=== PATIENT | female | born 1975 | race Caucasian/White ===

== ENCOUNTER 2019-12-10 01:26 | Observation (INO) ==
[2019-12-10] MEDS ORDERED: Ondansetron 4 MG/2 ML VIAL IVP PRN (03:41)
[2019-12-10] MEDS ORDERED: Naloxone 0.4 MG/ML INJ IVP PRN (03:41)
[2019-12-10] MEDS ORDERED: Ipratropium/Albuterol Neb 3 ML IH PRN (03:43)
[2019-12-10] MEDS ORDERED: Furosemide 40 MG/4 ML VIAL IVP ONE ×2 (03:46→21:00)
[2019-12-10] MEDS: Acetaminophen 325 MG TABLET PO PRN ×3 (05:01→22:44)
[2019-12-10 05:18] LABS: Basophils % 0.5 %; Eosinophils # 0.4 K/mcL (0.0-0.6); Eosinophils % 6.4 %; Hematocrit 38.4 % (35.3-44.9); Hemoglobin 11.9 g/dL (11.5-15.4); Immature Granulocytes % 0.4 % (0-4); Lymphocytes # 1.7 K/mcL (0.6-4.6); Lymphocytes % 29.8 %; Mean Corpuscular Volume 80.7 fL (83.0-100.0); Mean Platelet Volume 8.8 fL (9.4-12.4); Monocytes # 0.5 K/mcL (0.0-1.3); Monocytes % 8.6 %; Neutrophils # 3.1 K/mcL (1.6-8.9); Platelet Count 374 K/mcL (140-400); Red Blood Count 4.76 M/mcL (3.82-4.97); Segmented Neutrophils % 54.3 %; White Blood Count 5.6 K/mcL (4.3-11.1)
[2019-12-10 05:31] LABS: INR 1.1; Prothrombin Time 12.2 Seconds (9.4-12.1)
[2019-12-10 05:42] LABS: BUN/Creatinine Ratio 4 (6-26); Blood Urea Nitrogen 3 mg/dL (6-20); Carbon Dioxide 24 mEq/L (23-29); Chloride 102 mEq/L (98-107); Glucose 95 mg/dL (70-105); Magnesium 1.9 mg/dL (1.6-2.6); Osmolality,Calculated 280 (280-300); Phosphorous 3.5 mg/dL (2.7-4.5); Potassium 3.5 mEq/L (3.5-5.1); Sodium 137 mEq/L (136-145); eGFR For African Americans > 60 (> 60); eGFR For Non-African Americans > 60 (> 60)
[2019-12-10] MEDS ORDERED: *HR* Heparin 5,000 UNIT/ML VIAL IVP ONE (08:27)
[2019-12-10] MEDS ORDERED: *HR* Heparin 5,000 UNIT/ML VIAL IVP PRN (08:27)
[2019-12-10] MEDS: MethylPREDNISolone 40 MG/ML VIAL IVP SCH ×3 (08:48→23:47)
[2019-12-10] MEDS: Azithromycin 500 MG in 0.9 % Sodium Chloride 250 ML IVPB SCH (08:48)
[2019-12-10] MEDS ORDERED: Albuterol 2.5 MG/3 ML NEBULIZER IH PRN (09:30)
[2019-12-10] MEDS: Heparin 25,000 UNIT/250 ML D5W 25,000 UNIT/250 ML IV.SOLN IVC SCH (09:52)
[2019-12-10] MEDS: Ipratropium/Albuterol Neb 3 ML IH SCH ×3 (12:04→19:56)
[2019-12-10] MEDS ORDERED: polyethylene glycoL 3350 17 GM POWD.PACK PO PRN (12:38)
[2019-12-10] MEDS: ALPRAZolam 1 MG TABLET PO PRN (13:33)
[2019-12-10] MEDS: Tiotropium 18 MCG inhalation IH SCH (13:58)
[2019-12-10] MEDS ORDERED: Perflutren Lipid Microsphere 1.3 ML in 0.9 % Sodium Chloride 8.7 ML IVP ONE (17:13)
[2019-12-10] MEDS ORDERED: Warfarin perPT PO PRN (18:00)
[2019-12-10] MEDS ORDERED: Enoxaparin Weight Dosing SQ SCH (18:00)
[2019-12-10] MEDS: Budesonide/Formoterol 160/4.5 1 PUFF INH IH SCH (19:56)
[2019-12-10] MEDS: Magnesium Oxide 400 MG TABLET PO SCH (20:56)
[2019-12-10] MEDS: *HR* Heparin 5,000 UNIT/ML VIAL IVP PRN (23:46)
[2019-12-11] MEDS: Ipratropium/Albuterol Neb 3 ML IH SCH ×7 (00:10→23:19)
[2019-12-11 06:42] LABS: BUN/Creatinine Ratio 8 (6-26); Blood Urea Nitrogen 8 mg/dL (6-20); Calcium 9.2 mg/dL (8.6-10.3); Carbon Dioxide 29 mEq/L (23-29); Chloride 98 mEq/L (98-107); Glucose 181 mg/dL (70-105); Osmolality,Calculated 285 (280-300); Potassium 3.9 mEq/L (3.5-5.1); Sodium 136 mEq/L (136-145); eGFR For African Americans > 60 (> 60); eGFR For Non-African Americans > 60 (> 60)
[2019-12-11 06:55] LABS: Prothrombin Time 11.1 Seconds (9.4-12.1)
[2019-12-11] MEDS: Heparin 25,000 UNIT/250 ML D5W 25,000 UNIT/250 ML IV.SOLN IVC SCH ×2 (07:09→22:58)
[2019-12-11] MEDS: Budesonide/Formoterol 160/4.5 1 PUFF INH IH SCH ×2 (07:42→19:43)
[2019-12-11] MEDS: Tiotropium 18 MCG inhalation IH SCH (07:42)
[2019-12-11] MEDS: Azithromycin 500 MG in 0.9 % Sodium Chloride 250 ML IVPB SCH (08:54)
[2019-12-11] MEDS: DilTIAZem CD (24hr) 120 MG CAP.ER.24H PO SCH (08:55)
[2019-12-11] MEDS: Metoprolol XL (24 HR) Succ 25 MG TAB.ER.24H PO SCH (08:55)
[2019-12-11] MEDS: Cyanocobalamin (B-12) 1,000 MCG TABLET PO SCH (08:55)
[2019-12-11] MEDS: MethylPREDNISolone 40 MG/ML VIAL IVP SCH ×3 (08:55→23:28)
[2019-12-11] MEDS: PARoxetine 20 MG TABLET PO SCH (08:55)
[2019-12-11] MEDS: Magnesium Oxide 400 MG TABLET PO SCH ×2 (08:55→20:57)
[2019-12-11] MEDS: Folic Acid 1 MG TABLET PO SCH (08:56)
[2019-12-11] MEDS ORDERED: SALMETEROL IH SCH (09:00)
[2019-12-11] MEDS ORDERED: [UNRECOGNIZED DRUG - OTHER] IH SCH (09:00)
[2019-12-11] MEDS ORDERED: *HR* Warfarin 5 MG TABLET PO ONE (09:00)
[2019-12-11] MEDS ORDERED: FLUTICASONE IH SCH (09:00)
[2019-12-11] MEDS ORDERED: Furosemide 40 MG TABLET PO SCH (09:00)
[2019-12-11] MEDS ORDERED: NON-FORMULARY MEDICATION 1 EACH EACH (Umeclidinium Bromide [Incruse Ellipta] 1 PUFF) IH SCH (09:00)
[2019-12-11] MEDS: ALPRAZolam 1 MG TABLET PO PRN ×3 (09:19→23:27)
[2019-12-11] MEDS: Acetaminophen 325 MG TABLET PO PRN (09:19)
[2019-12-11] MEDS: *HR* Heparin 5,000 UNIT/ML VIAL IVP PRN (15:58)
[2019-12-11] MEDS: Furosemide 40 MG/4 ML VIAL IVP SCH (20:58)
[2019-12-12 03:47] LABS: Hematocrit 36.4 % (35.3-44.9); Hemoglobin 10.8 g/dL (11.5-15.4); Mean Corpuscular HGB Conc 29.7 g/dL (31.6-35.5); Mean Corpuscular Hemoglobin 24.3 pg (28.0-33.3); Mean Platelet Volume 8.7 fL (9.4-12.4); Platelet Count 356 K/mcL (140-400); Red Blood Count 4.44 M/mcL (3.82-4.97); Red Cell Distribution Width 14.6 % (11.5-14.5); White Blood Count 5.9 K/mcL (4.3-11.1)
[2019-12-12 03:52] LABS: Prothrombin Time 11.9 Seconds (9.4-12.1)
[2019-12-12 04:06] LABS: BUN/Creatinine Ratio 15 (6-26); Blood Urea Nitrogen 16 mg/dL (6-20); Calcium 9.2 mg/dL (8.6-10.3); Carbon Dioxide 32 mEq/L (23-29); Chloride 97 mEq/L (98-107); Glucose 206 mg/dL (70-105); Osmolality,Calculated 283 (280-300); Potassium 4.3 mEq/L (3.5-5.1); Sodium 133 mEq/L (136-145); eGFR For African Americans > 60 (> 60); eGFR For Non-African Americans 55 (> 60)
[2019-12-12] MEDS: Ipratropium/Albuterol Neb 3 ML IH SCH ×4 (04:33→15:05)
[2019-12-12] MEDS: Budesonide/Formoterol 160/4.5 1 PUFF INH IH SCH (07:47)
[2019-12-12] MEDS: Tiotropium 18 MCG inhalation IH SCH (07:48)
[2019-12-12] MEDS: Cyanocobalamin (B-12) 1,000 MCG TABLET PO SCH (08:33)
[2019-12-12] MEDS: DilTIAZem CD (24hr) 120 MG CAP.ER.24H PO SCH (08:33)
[2019-12-12] MEDS: Metoprolol XL (24 HR) Succ 25 MG TAB.ER.24H PO SCH (08:33)
[2019-12-12] MEDS: Folic Acid 1 MG TABLET PO SCH (08:33)
[2019-12-12] MEDS: ALPRAZolam 1 MG TABLET PO PRN (08:33)
[2019-12-12] MEDS: Furosemide 40 MG/4 ML VIAL IVP SCH (08:34)
[2019-12-12] MEDS: PARoxetine 20 MG TABLET PO SCH (08:34)
[2019-12-12] MEDS: Magnesium Oxide 400 MG TABLET PO SCH (08:34)
[2019-12-12] MEDS: Azithromycin 500 MG in 0.9 % Sodium Chloride 250 ML IVPB SCH (08:37)
[2019-12-12] MEDS: MethylPREDNISolone 40 MG/ML VIAL IVP SCH (08:42)
[2019-12-12] MEDS ORDERED: Aspirin 81 MG TAB.CHEW PO SCH (09:00)
[2019-12-12 11:21] VITALS: BP 148/100
[2019-12-12] MEDS ORDERED: *HR* Warfarin 10 MG TABLET PO ONE (18:00)
[2019-12-12] MEDS ORDERED: *HR* Enoxaparin 100 MG/ML SYRINGE SQ SCH (18:00)
== END 2019-12-12 15:36 | disposition home or self-care (01) ==
LOC: 3BNU
PROVIDERS: ADMIT Family Medicine; ATTEND Family Medicine

== ENCOUNTER 2021-02-01 00:07 | Inpatient (IN) ==
[2021-02-01] MEDS ORDERED: Naloxone 0.4 MG/ML INJ IVP PRN ×2 (02:52→16:39)
[2021-02-01 03:45] LABS: Basophils % 0.4 %; Eosinophils # 0.1 K/mcL (0.0-0.6); Eosinophils % 0.6 %; Hematocrit 22.1 % (35.3-44.9); Hemoglobin 7.5 g/dL (11.5-15.4); Immature Granulocytes % 1.3 % (0-4); Lymphocytes # 1.9 K/mcL (0.6-4.6); Lymphocytes % 19.5 %; Mean Corpuscular HGB Conc 33.9 g/dL (31.6-35.5); Mean Corpuscular Hemoglobin 31.6 pg (28.0-33.3); Mean Corpuscular Volume 93.2 fL (83.0-100.0); Mean Platelet Volume 9.1 fL (9.4-12.4); Monocytes # 0.7 K/mcL (0.0-1.3); Monocytes % 6.7 %; Neutrophils # 6.9 K/mcL (1.6-8.9); Platelet Count 248 K/mcL (140-400); Red Blood Count 2.37 M/mcL (3.82-4.97); Red Cell Distribution Width 14.1 % (11.5-14.5); Segmented Neutrophils % 71.5 %; White Blood Count 9.7 K/mcL (4.3-11.1)
[2021-02-01 04:01] LABS: Albumin 2.5 g/dL (3.5-5.7); Albumin/Globulin Ratio 1.1 (1.1-2.2); Bilirubin,Total 3.4 mg/dL (0.3-1.0); Calcium 7.6 mg/dL (8.6-10.3); Globulin 2.2 g/dL (2.4-3.5); Magnesium 1.8 mg/dL (1.6-2.6); Potassium 3.3 mEq/L (3.5-5.1); Total Protein 4.7 g/dL (6.4-8.9)
[2021-02-01 04:21] LABS: Activated Partial Thrombo Time 142.2 Seconds (26.0-36.0); INR 10.5
[2021-02-01] MEDS ORDERED: 0.9 % Sodium Chloride 500 ML ONE (04:38)
[2021-02-01 05:34] LABS: Bacteria,Urine Few per hpf (None-Few); Bilirubin,Urine Negative (Negative); Blood,Urine Negative (Negative); Clarity,Urine Turbid (Clear); Color,Urine Yellow (Yellow); Glucose,Urine (UA) Normal (Normal); Hyaline Casts,Urine Few per lpf (None Seen); Ketones,Urine Negative (Negative); Leukocyte Esterase,Urine Moderate (Negative); Mucus,Urine Few per lpf (None-Few); Nitrite,Urine Negative (Negative); PH,Urine 5.5 pH Units (5.0-8.0); Protein,Urine Trace mg/dL (Neg-Trace); RBC,Urine 0-3 per hpf (0-3); Specific Gravity,Urine 1.011 (1.010-1.025); WBC,Urine 15-30 per hpf (0-3)
[2021-02-01] MEDS ORDERED: ALPRAZolam 1 MG TABLET PO PRN (07:25)
[2021-02-01] MEDS ORDERED: Ipratropium/Albuterol Neb 3 ML IH PRN (07:25)
[2021-02-01] MEDS ORDERED: Albuterol 2.5 MG/3 ML NEBULIZER IH PRN (07:25)
[2021-02-01] MEDS ORDERED: *HR* LORazepam 2 MG/ML VIAL IVP PRN (07:30)
[2021-02-01] MEDS ORDERED: 0.9 % Sodium Chloride 1,000 ML IVC SCH (07:30)
[2021-02-01] MEDS ORDERED: Folic Acid 1 MG TABLET PO SCH (09:00)
[2021-02-01] MEDS ORDERED: Thiamine (B-1) 100 MG TABLET PO SCH (09:00)
[2021-02-01] MEDS ORDERED: Metoprolol XL (24 HR) Succ 50 MG TAB.ER.24H PO SCH (09:00)
[2021-02-01] MEDS ORDERED: Nicotine 21 MG PATCH.TD24 TD SCH (09:00)
[2021-02-01 10:03] LABS: Prothrombin Time 33.7 Seconds (9.4-12.1)
[2021-02-01 13:35] LABS: INR 1.9
[2021-02-01] MEDS ORDERED: *HR* Heparin 5,000 UNIT/ML VIAL IVP PRN ×4 (14:10→16:39)
[2021-02-01] MEDS ORDERED: Heparin 25,000UNIT/250ML 1/2NS 25,000 UNIT/250 ML IV.SOLN IVC SCH (14:15)
[2021-02-01 15:30] LABS: Calcium 8.1 mg/dL (8.6-10.3); Potassium 3.5 mEq/L (3.5-5.1)
[2021-02-01 16:28] LABS: Hematocrit 24.1 % (35.3-44.9); Hemoglobin 8.4 g/dL (11.5-15.4); Mean Corpuscular HGB Conc 34.9 g/dL (31.6-35.5); Mean Corpuscular Hemoglobin 32.2 pg (28.0-33.3); Mean Corpuscular Volume 92.3 fL (83.0-100.0); Mean Platelet Volume 9.2 fL (9.4-12.4); Platelet Count 215 K/mcL (140-400); Red Blood Count 2.61 M/mcL (3.82-4.97); Red Cell Distribution Width 13.8 % (11.5-14.5); White Blood Count 10.7 K/mcL (4.3-11.1)
[2021-02-01] MEDS ORDERED: Pantoprazole 40 MG VIAL IVP SCH (18:00)
[2021-02-01] MEDS: ALPRAZolam 1 MG TABLET PO PRN ×2 (18:09→21:02)
[2021-02-01] MEDS: Metoprolol XL (24 HR) Succ 50 MG TAB.ER.24H PO SCH (20:16)
[2021-02-01] MEDS: 0.9 % Sodium Chloride 1,000 ML IVC SCH (21:01)
[2021-02-01] MEDS: Gabapentin 400 MG CAPSULE PO SCH (21:02)
[2021-02-02] MEDS: Heparin 25,000UNIT/250ML 1/2NS 25,000 UNIT/250 ML IV.SOLN IVC SCH ×4 (02:59→21:24)
[2021-02-02] MEDS: 0.9 % Sodium Chloride 1,000 ML IVC SCH ×3 (05:17→21:29)
[2021-02-02] MEDS: Ipratropium/Albuterol Neb 3 ML IH PRN ×4 (05:59→21:56)
[2021-02-02 06:14] LABS: Calcium 8.3 mg/dL (8.6-10.3); Potassium 3.7 mEq/L (3.5-5.1)
[2021-02-02 06:20] LABS: Thyroid Stimulating Hormone 3.299 mcIU/mL (0.340-5.600)
[2021-02-02 08:13] LABS: Hematocrit 20.6 % (35.3-44.9); Hemoglobin 7.1 g/dL (11.5-15.4); Mean Corpuscular HGB Conc 34.5 g/dL (31.6-35.5); Mean Corpuscular Hemoglobin 33.3 pg (28.0-33.3); Mean Corpuscular Volume 96.7 fL (83.0-100.0); Mean Platelet Volume 9.2 fL (9.4-12.4); Platelet Count 170 K/mcL (140-400); Red Blood Count 2.13 M/mcL (3.82-4.97); Red Cell Distribution Width 14.2 % (11.5-14.5); White Blood Count 5.7 K/mcL (4.3-11.1)
[2021-02-02 08:14] LABS: INR 1.4; Prothrombin Time 15.8 Seconds (9.4-12.1)
[2021-02-02] MEDS ORDERED: Thiamine (B-1) 100 MG TABLET PO SCH (09:00)
[2021-02-02] MEDS ORDERED: 0.9 % Sodium Chloride 250 ML IVC SCH (10:00)
[2021-02-02] MEDS: Folic Acid 1 MG TABLET PO SCH (10:01)
[2021-02-02] MEDS: Gabapentin 400 MG CAPSULE PO SCH ×3 (10:01→21:24)
[2021-02-02] MEDS: Nicotine 21 MG PATCH.TD24 TD SCH (10:02)
[2021-02-02] MEDS: Metoprolol XL (24 HR) Succ 50 MG TAB.ER.24H PO SCH ×2 (10:02→19:59)
[2021-02-02] MEDS: ALPRAZolam 1 MG TABLET PO PRN ×2 (12:13→22:48)
[2021-02-02] MEDS: Albumin 25% 25gram/100mL 25 GM/100 ML IV.SOLN IVC SCH ×2 (15:11→17:49)
[2021-02-03 03:07] LABS: Hematocrit 19.6 % (35.3-44.9); Hemoglobin 6.5 g/dL (11.5-15.4); Mean Corpuscular HGB Conc 33.2 g/dL (31.6-35.5); Mean Corpuscular Volume 93.3 fL (83.0-100.0); Platelet Count 137 K/mcL (140-400); Red Cell Distribution Width 16.4 % (11.5-14.5); White Blood Count 4.8 K/mcL (4.3-11.1)
[2021-02-03 03:17] LABS: INR 1.3; Prothrombin Time 14.7 Seconds (9.4-12.1)
[2021-02-03 03:27] LABS: Calcium 7.8 mg/dL (8.6-10.3); Potassium 3.2 mEq/L (3.5-5.1)
[2021-02-03 03:28] LABS: % Iron Saturation 85 % (15-50); Iron 105 mcg/dL (50-170); Transferrin 88 mg/dL (203-362)
[2021-02-03 03:47] LABS: Ferritin 319 ng/mL (10-120)
[2021-02-03 03:51] LABS: Folate 14.6 ng/mL (3.0-16.0)
[2021-02-03] MEDS: Ipratropium/Albuterol Neb 3 ML IH PRN ×5 (03:54→23:19)
[2021-02-03 04:04] LABS: Vitamin B12 > 1500 pg/mL (250-1100)
[2021-02-03] MEDS ORDERED: 0.9 % Sodium Chloride 250 ML ONE (04:22)
[2021-02-03] MEDS: 0.9 % Sodium Chloride 1,000 ML IVC SCH (04:38)
[2021-02-03] MEDS ORDERED: Isovue-370 500 ML BOTTLE IVP ONE (07:37)
[2021-02-03] MEDS: Gabapentin 400 MG CAPSULE PO SCH ×3 (07:40→20:26)
[2021-02-03] MEDS: Thiamine (B-1) 100 MG TABLET PO SCH (07:41)
[2021-02-03] MEDS: Metoprolol XL (24 HR) Succ 50 MG TAB.ER.24H PO SCH ×2 (07:42→20:27)
[2021-02-03] MEDS: Aspirin 81 MG TAB.CHEW PO SCH (07:42)
[2021-02-03] MEDS: Loratadine 10 MG TABLET PO SCH (07:42)
[2021-02-03] MEDS: Cyanocobalamin (B-12) 1,000 MCG TABLET PO SCH (07:42)
[2021-02-03] MEDS: Folic Acid 1 MG TABLET PO SCH (07:42)
[2021-02-03] MEDS: Fluticasone Propionate Nasal 50 MCG/SPRAY BOTTLE NS SCH (07:47)
[2021-02-03] MEDS: Nicotine 21 MG PATCH.TD24 TD SCH (07:47)
[2021-02-03] MEDS: *HR* LORazepam 2 MG/ML VIAL IVP PRN (08:07)
[2021-02-03] MEDS: ALPRAZolam 1 MG TABLET PO PRN (15:16)
[2021-02-03] MEDS ORDERED: Furosemide 40 MG/4 ML VIAL IVP ONE (15:18)
[2021-02-03] MEDS ORDERED: Albumin 25% 25gram/100mL 25 GM/100 ML IV.SOLN IVPB ONE (15:18)
[2021-02-03] MEDS ORDERED: Warfarin perPT PO PRN (18:00)
[2021-02-03 18:17] LABS: Hematocrit 24.9 % (35.3-44.9)
[2021-02-03 18:18] LABS: Hemoglobin 8.5 g/dL (11.5-15.4)
[2021-02-03] MEDS: Heparin 25,000UNIT/250ML 1/2NS 25,000 UNIT/250 ML IV.SOLN IVC SCH (18:28)
[2021-02-03] MEDS ORDERED: *HR* Warfarin 7.5 MG TABLET PO ONE (18:30)
[2021-02-04 01:05] LABS: Hematocrit 23.7 % (35.3-44.9); Hemoglobin 7.8 g/dL (11.5-15.4); Mean Corpuscular HGB Conc 32.9 g/dL (31.6-35.5); Mean Corpuscular Hemoglobin 31.2 pg (28.0-33.3); Mean Corpuscular Volume 94.8 fL (83.0-100.0); Mean Platelet Volume 8.8 fL (9.4-12.4); Platelet Count 126 K/mcL (140-400); White Blood Count 5.1 K/mcL (4.3-11.1)
[2021-02-04 01:13] LABS: BUN/Creatinine Ratio 13 (6-26); Blood Urea Nitrogen 14 mg/dL (6-20); Calcium 8.3 mg/dL (8.6-10.3); Carbon Dioxide 27 mEq/L (23-29); Chloride 100 mEq/L (98-107); Glucose 82 mg/dL (70-105); Osmolality,Calculated 284 (280-300); Potassium 3.1 mEq/L (3.5-5.1); Sodium 137 mEq/L (136-145); eGFR For African Americans > 60 (> 60); eGFR For Non-African Americans 57 (> 60)
[2021-02-04] MEDS: GuaiFENesin Liq 200 MG/10 ML UDC PO PRN (01:33)
[2021-02-04] MEDS: ALPRAZolam 1 MG TABLET PO PRN ×2 (01:33→18:31)
[2021-02-04 01:55] LABS: Heparin anti-factor XA UFH 0.37 IU/mL (0.30-0.70); INR 1.3; Prothrombin Time 14.9 Seconds (9.4-12.1)
[2021-02-04] MEDS: Ipratropium/Albuterol Neb 3 ML IH PRN ×5 (04:30→20:03)
[2021-02-04] MEDS: Cyanocobalamin (B-12) 1,000 MCG TABLET PO SCH (09:06)
[2021-02-04] MEDS: Aspirin 81 MG TAB.CHEW PO SCH (09:06)
[2021-02-04] MEDS: Folic Acid 1 MG TABLET PO SCH (09:06)
[2021-02-04] MEDS: Gabapentin 400 MG CAPSULE PO SCH ×3 (09:06→21:02)
[2021-02-04] MEDS: Thiamine (B-1) 100 MG TABLET PO SCH (09:06)
[2021-02-04] MEDS: Nicotine 21 MG PATCH.TD24 TD SCH (09:07)
[2021-02-04] MEDS: Loratadine 10 MG TABLET PO SCH (09:07)
[2021-02-04] MEDS: Metoprolol XL (24 HR) Succ 50 MG TAB.ER.24H PO SCH ×2 (09:07→21:01)
[2021-02-04] MEDS: Furosemide 40 MG/4 ML VIAL IVP SCH (09:08)
[2021-02-04] MEDS: Fluticasone Propionate Nasal 50 MCG/SPRAY BOTTLE NS SCH (09:08)
[2021-02-04] MEDS: Heparin 25,000UNIT/250ML 1/2NS 25,000 UNIT/250 ML IV.SOLN IVC SCH (14:13)
[2021-02-04] MEDS ORDERED: *HR* Warfarin 7.5 MG TABLET PO ONE (18:00)
[2021-02-05] MEDS: Ipratropium/Albuterol Neb 3 ML IH PRN ×3 (02:19→23:09)
[2021-02-05] MEDS: ALPRAZolam 1 MG TABLET PO PRN ×4 (02:36→20:10)
[2021-02-05 07:54] LABS: Hematocrit 25.5 % (35.3-44.9); Hemoglobin 8.3 g/dL (11.5-15.4); Mean Corpuscular HGB Conc 32.5 g/dL (31.6-35.5); Mean Corpuscular Hemoglobin 31.1 pg (28.0-33.3); Mean Corpuscular Volume 95.5 fL (83.0-100.0); Mean Platelet Volume 9.3 fL (9.4-12.4); Platelet Count 126 K/mcL (140-400); Red Blood Count 2.67 M/mcL (3.82-4.97); Red Cell Distribution Width 16.5 % (11.5-14.5); White Blood Count 5.8 K/mcL (4.3-11.1)
[2021-02-05 08:14] LABS: BUN/Creatinine Ratio 8 (6-26); Blood Urea Nitrogen 8 mg/dL (6-20); Calcium 8.5 mg/dL (8.6-10.3); Carbon Dioxide 28 mEq/L (23-29); Chloride 99 mEq/L (98-107); Glucose 79 mg/dL (70-105); Osmolality,Calculated 279 (280-300); Potassium 3.3 mEq/L (3.5-5.1); Sodium 136 mEq/L (136-145); eGFR For African Americans > 60 (> 60); eGFR For Non-African Americans > 60 (> 60)
[2021-02-05 08:44] LABS: INR 1.7; Prothrombin Time 19.7 Seconds (9.4-12.1)
[2021-02-05] MEDS: Thiamine (B-1) 100 MG TABLET PO SCH (10:19)
[2021-02-05] MEDS: Aspirin 81 MG TAB.CHEW PO SCH (10:19)
[2021-02-05] MEDS: Metoprolol XL (24 HR) Succ 50 MG TAB.ER.24H PO SCH ×2 (10:19→20:04)
[2021-02-05] MEDS: Folic Acid 1 MG TABLET PO SCH (10:19)
[2021-02-05] MEDS: Cyanocobalamin (B-12) 1,000 MCG TABLET PO SCH (10:19)
[2021-02-05] MEDS: Gabapentin 400 MG CAPSULE PO SCH ×3 (10:20→20:04)
[2021-02-05] MEDS: Furosemide 40 MG/4 ML VIAL IVP SCH (10:20)
[2021-02-05] MEDS: Loratadine 10 MG TABLET PO SCH (10:20)
[2021-02-05] MEDS: Nicotine 21 MG PATCH.TD24 TD SCH (10:21)
[2021-02-05] MEDS: Fluticasone Propionate Nasal 50 MCG/SPRAY BOTTLE NS SCH (10:45)
[2021-02-05] MEDS: Heparin 25,000UNIT/250ML 1/2NS 25,000 UNIT/250 ML IV.SOLN IVC SCH (10:49)
[2021-02-05 15:20] LABS: Adenovirus Not Detected (Not Detect); Bordetella Pertussis Not Detected (Not Detect); Chlamydophila pneumoniae Not Detected (Not Detect); Coronavirus 229E Not Detected (Not Detect); Coronavirus HKU1 Not Detected (Not Detect); Coronavirus NL63 Not Detected (Not Detect); Coronavirus OC43 Not Detected (Not Detect); Human Metapneumovirus Not Detected (Not Detect); Human Rhinovirus/Enterovirus Not Detected (Not Detect); Influenza A Subtype 2009 H1 Not Detected (Not Detect); Influenza B Not Detected (Not Detect); Mycoplasma pneumoniae Not Detected (Not Detect); Parainfluenza Virus 1 Not Detected (Not Detect); Parainfluenza Virus 2 Not Detected (Not Detect); Parainfluenza Virus 3 Not Detected (Not Detect); Parainfluenza Virus 4 Not Detected (Not Detect); Respiratory Syncytial Virus Not Detected (Not Detect); SARS-CoV-2 Not Detected (Not Detect)
[2021-02-05] MEDS ORDERED: *HR* Warfarin 7.5 MG TABLET PO ONE (18:00)
[2021-02-05 18:38] LABS: Hematocrit 27.4 % (35.3-44.9); Hemoglobin 8.8 g/dL (11.5-15.4)
[2021-02-06 00:51] LABS: Basophils # 0.1 K/mcL (0.0-0.2); Basophils % 0.7 %; Eosinophils % 3.2 %; Hematocrit 25.7 % (35.3-44.9); Hemoglobin 8.3 g/dL (11.5-15.4); Lymphocytes # 1.7 K/mcL (0.6-4.6); Lymphocytes % 15.4 %; Mean Corpuscular HGB Conc 32.3 g/dL (31.6-35.5); Mean Corpuscular Volume 95.9 fL (83.0-100.0); Mean Platelet Volume 9.4 fL (9.4-12.4); Monocytes # 0.8 K/mcL (0.0-1.3); Monocytes % 7.3 %; Neutrophils # 7.8 K/mcL (1.6-8.9); Platelet Count 192 K/mcL (140-400); Red Blood Count 2.68 M/mcL (3.82-4.97); Red Cell Distribution Width 16.3 % (11.5-14.5); Segmented Neutrophils % 72.4 %
[2021-02-06 00:52] LABS: Eosinophils # 0.4 K/mcL (0.0-0.6); White Blood Count 10.8 K/mcL (4.3-11.1)
[2021-02-06 00:59] LABS: INR 2.2; Prothrombin Time 25.1 Seconds (9.4-12.1)
[2021-02-06 01:40] LABS: Calcium 8.5 mg/dL (8.6-10.3)
[2021-02-06] MEDS: *HR* LORazepam 2 MG/ML VIAL IVP PRN (01:40)
[2021-02-06] MEDS: Heparin 25,000UNIT/250ML 1/2NS 25,000 UNIT/250 ML IV.SOLN IVC SCH (03:48)
[2021-02-06] MEDS: Ipratropium/Albuterol Neb 3 ML IH PRN ×2 (07:33→14:19)
[2021-02-06] MEDS: Folic Acid 1 MG TABLET PO SCH (07:57)
[2021-02-06] MEDS: Gabapentin 400 MG CAPSULE PO SCH ×3 (07:57→19:24)
[2021-02-06] MEDS: Cyanocobalamin (B-12) 1,000 MCG TABLET PO SCH (07:57)
[2021-02-06] MEDS: Loratadine 10 MG TABLET PO SCH (07:58)
[2021-02-06] MEDS: Thiamine (B-1) 100 MG TABLET PO SCH (07:58)
[2021-02-06] MEDS: ALPRAZolam 1 MG TABLET PO PRN ×3 (07:58→19:24)
[2021-02-06] MEDS: Nicotine 21 MG PATCH.TD24 TD SCH (07:58)
[2021-02-06] MEDS: Metoprolol XL (24 HR) Succ 50 MG TAB.ER.24H PO SCH ×2 (08:07→19:25)
[2021-02-06] MEDS: Fluticasone Propionate Nasal 50 MCG/SPRAY BOTTLE NS SCH (08:07)
[2021-02-06] MEDS ORDERED: Ondansetron 4 MG/2 ML VIAL IVP PRN (09:07)
[2021-02-06] MEDS ORDERED: Albumin 25% 25gram/100mL 25 GM/100 ML IV.SOLN IVPB SCH ×2 (17:30→19:00)
[2021-02-06 18:49] LABS: Hematocrit 20.9 % (35.3-44.9); Hemoglobin 6.7 g/dL (11.5-15.4)
[2021-02-06] MEDS ORDERED: Albumin 25% 25gram/100mL 25 GM/100 ML IV.SOLN IVPB ONE ×2 (19:00)
[2021-02-06] MEDS ORDERED: 0.9 % Sodium Chloride 250 ML ONE (20:45)
[2021-02-06] MEDS ORDERED: Isovue-370 500 ML BOTTLE IVP ONE (21:51)
[2021-02-06] MEDS ORDERED: Acetaminophen IV 1,000 MG/100 ML BAG IVPB ONE (21:53)
[2021-02-06] MEDS: Albuterol 2.5 MG/3 ML NEBULIZER IH PRN (23:14)
[2021-02-07 00:31] LABS: Eosinophils % 1.2 %; Red Cell Distribution Width 15.6 % (11.5-14.5)
[2021-02-07 00:32] LABS: Basophils # 0.1 K/mcL (0.0-0.2); Basophils % 0.5 %; Eosinophils # 0.1 K/mcL (0.0-0.6); Immature Granulocytes % 1.9 % (0-4); Lymphocytes # 2.5 K/mcL (0.6-4.6); Lymphocytes % 21.8 %; Mean Corpuscular HGB Conc 32.2 g/dL (31.6-35.5); Mean Corpuscular Hemoglobin 31.4 pg (28.0-33.3); Mean Corpuscular Volume 97.3 fL (83.0-100.0); Mean Platelet Volume 9.7 fL (9.4-12.4); Monocytes # 1.2 K/mcL (0.0-1.3); Neutrophils # 7.4 K/mcL (1.6-8.9); Platelet Count 201 K/mcL (140-400); Red Blood Count 1.85 M/mcL (3.82-4.97); Segmented Neutrophils % 64.6 %; White Blood Count 11.5 K/mcL (4.3-11.1)
[2021-02-07 00:38] LABS: Hemoglobin 5.8 g/dL (11.5-15.4)
[2021-02-07 00:42] LABS: INR 2.2; Prothrombin Time 25.1 Seconds (9.4-12.1)
[2021-02-07] MEDS ORDERED: 0.9 % Sodium Chloride 250 ML ONE ×2 (00:46→02:30)
[2021-02-07 00:50] LABS: Albumin 3.4 g/dL (3.5-5.7); Albumin/Globulin Ratio 1.9 (1.1-2.2); Bilirubin,Total 3.8 mg/dL (0.3-1.0); Calcium 7.9 mg/dL (8.6-10.3); Globulin 1.8 g/dL (2.4-3.5); Potassium 4.8 mEq/L (3.5-5.1); Total Protein 5.2 g/dL (6.4-8.9)
[2021-02-07 00:51] LABS: Calcium 7.9 mg/dL (8.6-10.3); Potassium 4.8 mEq/L (3.5-5.1)
[2021-02-07] MEDS ORDERED: Calcium Chloride 1,000 MG in 0.9 % Sodium Chloride 100 ML IVPB ONE (01:15)
[2021-02-07] MEDS ORDERED: Isovue-370 500 ML BOTTLE IVP ONE (01:41)
[2021-02-07] MEDS: ALPRAZolam 1 MG TABLET PO PRN ×3 (01:54→18:26)
[2021-02-07 04:22] LABS: VBG Ionized Calcium 1.18 mmol/L (1.15-1.35)
[2021-02-07 04:25] LABS: INR 1.9; Prothrombin Time 21.1 Seconds (9.4-12.1)
[2021-02-07 04:27] LABS: Activated Partial Thrombo Time 41.7 Seconds (26.0-36.0)
[2021-02-07 04:33] LABS: Albumin 3.2 g/dL (3.5-5.7); Albumin/Globulin Ratio 1.7 (1.1-2.2); Bilirubin,Direct 2.3 mg/dL (0.0-0.2); Bilirubin,Indirect 1.2 mg/dL (0.0-1.0); Bilirubin,Total 3.5 mg/dL (0.3-1.0); Calcium 9.1 mg/dL (8.6-10.3); Globulin 1.9 g/dL (2.4-3.5); Magnesium 1.2 mg/dL (1.6-2.6); Phosphorous 2.5 mg/dL (2.7-4.5); Potassium 4.3 mEq/L (3.5-5.1); Total Protein 5.1 g/dL (6.4-8.9)
[2021-02-07 05:17] LABS: Basophils % 0.3 %; Eosinophils # 0.1 K/mcL (0.0-0.6); Eosinophils % 1.4 %; Hematocrit 19.2 % (35.3-44.9); Hemoglobin 6.2 g/dL (11.5-15.4); Immature Granulocytes % 1.9 % (0-4); Lymphocytes # 1.5 K/mcL (0.6-4.6); Lymphocytes % 16.1 %; Mean Corpuscular HGB Conc 32.3 g/dL (31.6-35.5); Mean Corpuscular Hemoglobin 31.6 pg (28.0-33.3); Mean Platelet Volume 9.6 fL (9.4-12.4); Monocytes # 0.9 K/mcL (0.0-1.3); Monocytes % 9.3 %; Neutrophils # 6.6 K/mcL (1.6-8.9); Platelet Count 172 K/mcL (140-400); Red Blood Count 1.96 M/mcL (3.82-4.97); White Blood Count 9.3 K/mcL (4.3-11.1)
[2021-02-07] MEDS: Albuterol 2.5 MG/3 ML NEBULIZER IH PRN (07:29)
[2021-02-07] MEDS ORDERED: Heparin 1,000 UNITS/500 mL 500 ML ONE (08:23)
[2021-02-07] MEDS ORDERED: 0.9 % Sodium Chloride 500 ML ONE (08:23)
[2021-02-07] MEDS ORDERED: Lidocaine/EPI 1:100k 1% 50 ML VIAL ONE (08:23)
[2021-02-07] MEDS ORDERED: 0.9 % Sodium Chloride 1,000 ML ONE (08:34)
[2021-02-07] MEDS ORDERED: *HR* FentaNYL (PF) 100 MCG/2 ML VIAL ONE (08:35)
[2021-02-07] MEDS ORDERED: *HR* Midazolam HCl 2 MG/2 ML VIAL ONE (08:36)
[2021-02-07] MEDS ORDERED: *HR* FentaNYL (PF) 100 MCG/2 ML VIAL IVP ONE (08:42)
[2021-02-07] MEDS ORDERED: Isovue-300 50ML VIAL IVP ONE ×2 (08:54→09:07)
[2021-02-07] MEDS ORDERED: Acetaminophen 325 MG TABLET PO PRN (09:49)
[2021-02-07] MEDS: Thiamine (B-1) 100 MG TABLET PO SCH (10:13)
[2021-02-07] MEDS: Loratadine 10 MG TABLET PO SCH (10:13)
[2021-02-07] MEDS: Cyanocobalamin (B-12) 1,000 MCG TABLET PO SCH (10:13)
[2021-02-07] MEDS: Folic Acid 1 MG TABLET PO SCH (10:13)
[2021-02-07] MEDS: Nicotine 21 MG PATCH.TD24 TD SCH (10:13)
[2021-02-07] MEDS: Gabapentin 400 MG CAPSULE PO SCH ×3 (10:14→20:34)
[2021-02-07] MEDS: Metoprolol XL (24 HR) Succ 50 MG TAB.ER.24H PO SCH ×2 (10:14→20:35)
[2021-02-07] MEDS ORDERED: *HR* OxyCODONE Immed Rel 5 MG TABLET PO PRN (11:34)
[2021-02-07] MEDS: Fluticasone Propionate Nasal 50 MCG/SPRAY BOTTLE NS SCH (11:41)
[2021-02-07] MEDS ORDERED: Furosemide 40 MG/4 ML VIAL IVP ONE (11:51)
[2021-02-07 12:05] LABS: VBG Ionized Calcium 1.14 mmol/L (1.15-1.35)
[2021-02-07 12:10] LABS: Basophils # 0.1 K/mcL (0.0-0.2); Basophils % 0.7 %; Eosinophils # 0.2 K/mcL (0.0-0.6); Eosinophils % 1.6 %; Hematocrit 24.6 % (35.3-44.9); Lymphocytes # 1.2 K/mcL (0.6-4.6); Lymphocytes % 10.6 %; Mean Corpuscular HGB Conc 33.3 g/dL (31.6-35.5); Mean Corpuscular Hemoglobin 31.9 pg (28.0-33.3); Mean Corpuscular Volume 95.7 fL (83.0-100.0); Mean Platelet Volume 9.4 fL (9.4-12.4); Monocytes # 1.1 K/mcL (0.0-1.3); Monocytes % 9.4 %; Neutrophils # 8.4 K/mcL (1.6-8.9); Platelet Count 207 K/mcL (140-400); Red Blood Count 2.57 M/mcL (3.82-4.97); Red Cell Distribution Width 14.8 % (11.5-14.5); Segmented Neutrophils % 75.7 %; White Blood Count 11.1 K/mcL (4.3-11.1)
[2021-02-07 12:13] LABS: Hemoglobin 8.2 g/dL (11.5-15.4)
[2021-02-07 12:24] LABS: Activated Partial Thrombo Time 40.2 Seconds (26.0-36.0); INR 1.8
[2021-02-07 12:29] LABS: Calcium 8.9 mg/dL (8.6-10.3); Magnesium 1.8 mg/dL (1.6-2.6); Phosphorous 3.2 mg/dL (2.7-4.5); Potassium 4.6 mEq/L (3.5-5.1)
[2021-02-07] MEDS: *HR* OxyCODONE Immed Rel 5 MG TABLET PO PRN ×2 (14:34→20:41)
[2021-02-07] MEDS: Ipratropium/Albuterol Neb 3 ML IH PRN (15:25)
[2021-02-07 16:56] LABS: Potassium,Urine 24.7 mEq/L; Sodium, Urine 56.1 mEq/L
[2021-02-07 17:12] LABS: Bilirubin,Urine Negative (Negative); Blood,Urine Negative (Negative); Clarity,Urine Clear (Clear); Color,Urine Yellow (Yellow); Glucose,Urine (UA) Normal (Normal); Ketones,Urine Negative (Negative); Leukocyte Esterase,Urine Negative (Negative); Nitrite,Urine Negative (Negative); Protein,Urine Trace mg/dL (Neg-Trace); Specific Gravity,Urine 1.029 (1.010-1.025)
[2021-02-07] MEDS: Multivit/Ca/Min/Fe/FA 1 TAB TABLET PO SCH (18:17)
[2021-02-07] MEDS: Calcium Gluconate 1gm/50mL 1 GM/50 ML BAG IVPB SCH ×2 (18:17→19:17)
[2021-02-07 18:25] LABS: Basophils # 0.1 K/mcL (0.0-0.2); Basophils % 0.7 %; Eosinophils # 0.2 K/mcL (0.0-0.6); Eosinophils % 1.7 %; Hematocrit 24.5 % (35.3-44.9); Hemoglobin 8.3 g/dL (11.5-15.4); Immature Granulocytes % 1.5 % (0-4); Lymphocytes # 1.4 K/mcL (0.6-4.6); Lymphocytes % 11.6 %; Mean Corpuscular HGB Conc 33.9 g/dL (31.6-35.5); Mean Corpuscular Hemoglobin 31.9 pg (28.0-33.3); Mean Corpuscular Volume 94.2 fL (83.0-100.0); Mean Platelet Volume 9.3 fL (9.4-12.4); Monocytes # 1.2 K/mcL (0.0-1.3); Monocytes % 10.1 %; Platelet Count 226 K/mcL (140-400); Red Cell Distribution Width 15.3 % (11.5-14.5); Segmented Neutrophils % 74.4 %; White Blood Count 12.1 K/mcL (4.3-11.1)
[2021-02-07 18:32] LABS: INR 1.8; Prothrombin Time 20.7 Seconds (9.4-12.1)
[2021-02-07 18:44] LABS: Albumin 3.5 g/dL (3.5-5.7); Albumin/Globulin Ratio 1.8 (1.1-2.2); Bilirubin,Direct 3.3 mg/dL (0.0-0.2); Bilirubin,Indirect 1.7 mg/dL (0.0-1.0); Total Protein 5.5 g/dL (6.4-8.9)
[2021-02-08] MEDS: ALPRAZolam 1 MG TABLET PO PRN ×4 (03:32→23:05)
[2021-02-08] MEDS: *HR* OxyCODONE Immed Rel 5 MG TABLET PO PRN ×3 (03:57→20:13)
[2021-02-08 04:04] LABS: Basophils # 0.1 K/mcL (0.0-0.2); Basophils % 0.7 %; Eosinophils # 0.3 K/mcL (0.0-0.6); Eosinophils % 2.1 %; Hematocrit 25.1 % (35.3-44.9); Hemoglobin 8.3 g/dL (11.5-15.4); Immature Granulocytes % 1.4 % (0-4); Lymphocytes # 1.8 K/mcL (0.6-4.6); Lymphocytes % 12.4 %; Mean Corpuscular HGB Conc 33.1 g/dL (31.6-35.5); Mean Corpuscular Hemoglobin 31.7 pg (28.0-33.3); Mean Corpuscular Volume 95.8 fL (83.0-100.0); Mean Platelet Volume 9.1 fL (9.4-12.4); Monocytes # 1.8 K/mcL (0.0-1.3); Neutrophils # 10.5 K/mcL (1.6-8.9); Platelet Count 313 K/mcL (140-400); Red Blood Count 2.62 M/mcL (3.82-4.97); Red Cell Distribution Width 15.6 % (11.5-14.5); Segmented Neutrophils % 71.4 %; White Blood Count 14.6 K/mcL (4.3-11.1)
[2021-02-08 04:17] LABS: INR 1.7; Prothrombin Time 19.6 Seconds (9.4-12.1)
[2021-02-08 04:18] LABS: Albumin 3.3 g/dL (3.5-5.7); Albumin/Globulin Ratio 1.4 (1.1-2.2); Bilirubin,Direct 3.2 mg/dL (0.0-0.2); Bilirubin,Indirect 1.7 mg/dL (0.0-1.0); Bilirubin,Total 4.9 mg/dL (0.3-1.0); Calcium 9.2 mg/dL (8.6-10.3); Globulin 2.3 g/dL (2.4-3.5); Magnesium 1.8 mg/dL (1.6-2.6); Phosphorous 3.5 mg/dL (2.7-4.5); Potassium 5.2 mEq/L (3.5-5.1); Total Protein 5.6 g/dL (6.4-8.9)
[2021-02-08] MEDS: Albuterol 2.5 MG/3 ML NEBULIZER IH PRN (05:02)
[2021-02-08] MEDS: Loratadine 10 MG TABLET PO SCH (08:13)
[2021-02-08] MEDS: Gabapentin 400 MG CAPSULE PO SCH ×3 (08:13→20:13)
[2021-02-08] MEDS: Cefepime HCl 1,000 MG in 0.9 % Sodium Chloride Mini Bag 100 ML IVPB SCH ×3 (08:13→23:05)
[2021-02-08] MEDS: Thiamine (B-1) 100 MG TABLET PO SCH (08:13)
[2021-02-08] MEDS: Multivit/Ca/Min/Fe/FA 1 TAB TABLET PO SCH (08:13)
[2021-02-08] MEDS: Fluticasone Propionate Nasal 50 MCG/SPRAY BOTTLE NS SCH (08:14)
[2021-02-08] MEDS: Nicotine 21 MG PATCH.TD24 TD SCH (08:14)
[2021-02-08] MEDS: Metoprolol XL (24 HR) Succ 50 MG TAB.ER.24H PO SCH ×2 (08:14→20:13)
[2021-02-08] MEDS: Cyanocobalamin (B-12) 1,000 MCG TABLET PO SCH (08:14)
[2021-02-08] MEDS: Folic Acid 1 MG TABLET PO SCH (08:14)
[2021-02-08] MEDS: Ipratropium/Albuterol Neb 3 ML IH PRN ×3 (09:06→20:22)
[2021-02-08] MEDS: Heparin 25,000UNIT/250ML 1/2NS 25,000 UNIT/250 ML IV.SOLN IVC SCH (09:27)
[2021-02-08] MEDS ORDERED: Furosemide 20 MG/2 ML VIAL IVP ONE (10:47)
[2021-02-08 12:42] LABS: VBG Ionized Calcium 1.18 mmol/L (1.15-1.35)
[2021-02-08 12:45] LABS: Hematocrit 24.1 % (35.3-44.9); Hemoglobin 7.9 g/dL (11.5-15.4)
[2021-02-08 13:23] LABS: BUN/Creatinine Ratio 11 (6-26); Blood Urea Nitrogen 20 mg/dL (6-20); Calcium 9.2 mg/dL (8.6-10.3); Carbon Dioxide 23 mEq/L (23-29); Chloride 99 mEq/L (98-107); Glucose 93 mg/dL (70-105); Magnesium 1.8 mg/dL (1.6-2.6); Osmolality,Calculated 274 (280-300); Phosphorous 3.3 mg/dL (2.7-4.5); Potassium 5.5 mEq/L (3.5-5.1); Sodium 131 mEq/L (136-145); eGFR For African Americans 38 (> 60); eGFR For Non-African Americans 32 (> 60)
[2021-02-08 14:05] LABS: Troponin I < 0.03 ng/mL (< 0.04)
[2021-02-08 14:59] LABS: Basophils # 0.1 K/mcL (0.0-0.2); Basophils % 0.6 %; Eosinophils # 0.2 K/mcL (0.0-0.6); Eosinophils % 1.8 %; Immature Granulocytes % 1.3 % (0-4); Lymphocytes # 1.5 K/mcL (0.6-4.6); Mean Corpuscular HGB Conc 33.3 g/dL (31.6-35.5); Mean Corpuscular Hemoglobin 32.2 pg (28.0-33.3); Mean Corpuscular Volume 96.7 fL (83.0-100.0); Mean Platelet Volume 9.2 fL (9.4-12.4); Monocytes # 1.7 K/mcL (0.0-1.3); Monocytes % 12.5 %; Neutrophils # 9.8 K/mcL (1.6-8.9); Platelet Count 307 K/mcL (140-400); Red Blood Count 2.45 M/mcL (3.82-4.97); Red Cell Distribution Width 15.9 % (11.5-14.5); Segmented Neutrophils % 72.8 %; White Blood Count 13.5 K/mcL (4.3-11.1)
[2021-02-08 18:19] LABS: Basophils # 0.1 K/mcL (0.0-0.2); Basophils % 0.5 %; Eosinophils # 0.2 K/mcL (0.0-0.6); Eosinophils % 1.5 %; Hematocrit 25.1 % (35.3-44.9); Hemoglobin 8.1 g/dL (11.5-15.4); Immature Granulocytes % 1.7 % (0-4); Lymphocytes # 1.6 K/mcL (0.6-4.6); Lymphocytes % 11.4 %; Mean Corpuscular HGB Conc 32.3 g/dL (31.6-35.5); Mean Corpuscular Hemoglobin 31.8 pg (28.0-33.3); Mean Corpuscular Volume 98.4 fL (83.0-100.0); Mean Platelet Volume 9.2 fL (9.4-12.4); Monocytes # 1.7 K/mcL (0.0-1.3); Monocytes % 11.6 %; Neutrophils # 10.4 K/mcL (1.6-8.9); Platelet Count 317 K/mcL (140-400); Red Blood Count 2.55 M/mcL (3.82-4.97); Red Cell Distribution Width 15.9 % (11.5-14.5); Segmented Neutrophils % 73.3 %; White Blood Count 14.3 K/mcL (4.3-11.1)
[2021-02-08 20:45] LABS: Potassium 5.4 mEq/L (3.5-5.1)
[2021-02-09 00:09] LABS: Hematocrit 21.5 % (35.3-44.9); Hemoglobin 7.1 g/dL (11.5-15.4)
[2021-02-09] MEDS: Ipratropium/Albuterol Neb 3 ML IH PRN ×3 (00:55→19:42)
[2021-02-09] MEDS: *HR* OxyCODONE Immed Rel 5 MG TABLET PO PRN ×3 (01:17→20:26)
[2021-02-09 03:14] LABS: Basophils # 0.1 K/mcL (0.0-0.2); Basophils % 0.5 %; Eosinophils # 0.2 K/mcL (0.0-0.6); Eosinophils % 1.9 %; Immature Granulocytes % 1.7 % (0-4); Lymphocytes # 1.3 K/mcL (0.6-4.6); Lymphocytes % 11.5 %; Mean Corpuscular HGB Conc 31.8 g/dL (31.6-35.5); Mean Corpuscular Hemoglobin 31.3 pg (28.0-33.3); Mean Corpuscular Volume 98.2 fL (83.0-100.0); Mean Platelet Volume 9.3 fL (9.4-12.4); Monocytes # 1.6 K/mcL (0.0-1.3); Monocytes % 14.4 %; Neutrophils # 7.9 K/mcL (1.6-8.9); Platelet Count 274 K/mcL (140-400); Red Blood Count 2.24 M/mcL (3.82-4.97); Red Cell Distribution Width 16.1 % (11.5-14.5); White Blood Count 11.2 K/mcL (4.3-11.1)
[2021-02-09 03:21] LABS: INR 1.6; Prothrombin Time 18.6 Seconds (9.4-12.1)
[2021-02-09 03:24] LABS: Albumin 3.1 g/dL (3.5-5.7); Albumin/Globulin Ratio 1.5 (1.1-2.2); Bilirubin,Total 4.7 mg/dL (0.3-1.0); Calcium 8.4 mg/dL (8.6-10.3); Globulin 2.1 g/dL (2.4-3.5); Potassium 4.9 mEq/L (3.5-5.1); Total Protein 5.2 g/dL (6.4-8.9)
[2021-02-09] MEDS: Heparin 25,000UNIT/250ML 1/2NS 25,000 UNIT/250 ML IV.SOLN IVC SCH (05:59)
[2021-02-09] MEDS: ALPRAZolam 1 MG TABLET PO PRN ×3 (06:22→20:26)
[2021-02-09] MEDS: Cefepime HCl 1,000 MG in 0.9 % Sodium Chloride Mini Bag 100 ML IVPB SCH ×2 (07:29→15:10)
[2021-02-09] MEDS: Nicotine 21 MG PATCH.TD24 TD SCH (07:29)
[2021-02-09] MEDS: Thiamine (B-1) 100 MG TABLET PO SCH (07:30)
[2021-02-09] MEDS: Gabapentin 400 MG CAPSULE PO SCH ×3 (07:30→20:26)
[2021-02-09] MEDS: GuaiFENesin Liq 200 MG/10 ML UDC PO PRN (07:30)
[2021-02-09] MEDS: Loratadine 10 MG TABLET PO SCH (07:30)
[2021-02-09] MEDS: Multivit/Ca/Min/Fe/FA 1 TAB TABLET PO SCH (07:30)
[2021-02-09] MEDS: Folic Acid 1 MG TABLET PO SCH (07:31)
[2021-02-09] MEDS: Fluticasone Propionate Nasal 50 MCG/SPRAY BOTTLE NS SCH (07:31)
[2021-02-09] MEDS: Metoprolol XL (24 HR) Succ 50 MG TAB.ER.24H PO SCH ×2 (07:31→20:27)
[2021-02-09] MEDS: Cyanocobalamin (B-12) 1,000 MCG TABLET PO SCH (07:31)
[2021-02-09 07:49] LABS: Hematocrit 21.6 % (35.3-44.9); Hemoglobin 7.1 g/dL (11.5-15.4)
[2021-02-09] MEDS ORDERED: Lidocaine -MPF 1% 5 ML AMPUL INFILT ONE (10:00)
[2021-02-09 12:03] LABS: Hematocrit 24.9 % (35.3-44.9); Hemoglobin 8.2 g/dL (11.5-15.4)
[2021-02-09] MEDS ORDERED: Furosemide 20 MG/2 ML VIAL IVP ONE (12:13)
[2021-02-09 18:38] LABS: Hematocrit 26.8 % (35.3-44.9); Hemoglobin 8.8 g/dL (11.5-15.4)
[2021-02-09 21:09] VITALS: BP 106/64
== END 2021-02-09 21:40 | disposition short-term general hospital (02) | DRG 950 ==
LOC: SUATTDRO 02:16 → ICNU 02:16 → 2ANU 22:52 → ICNU 02-07 01:26
PROVIDERS: ADMIT Student in an Organized Health Care Education/Training Program; ATTEND Internal Medicine

== ENCOUNTER 2021-06-20 20:09 | Inpatient (IN) ==
[2021-06-21] MEDS ORDERED: *HR* Heparin 5,000 UNIT/ML VIAL IVP PRN (01:16)
[2021-06-21] MEDS: Heparin 25,000UNIT/250ML 1/2NS 25,000 UNIT/250 ML IV.SOLN IVC SCH (01:52)
[2021-06-21] MEDS: Levalbuterol Neb 1.25 MG/3 ML IH SCH ×6 (03:24→19:33)
[2021-06-21 03:49] LABS: Hematocrit 41.4 % (35.3-44.9); Hemoglobin 13.6 g/dL (11.5-15.4); Mean Corpuscular HGB Conc 32.9 g/dL (31.6-35.5); Mean Corpuscular Hemoglobin 34.3 pg (28.0-33.3); Mean Corpuscular Volume 104.5 fL (83.0-100.0); Mean Platelet Volume 9.2 fL (9.4-12.4); Platelet Count 124 K/mcL (140-400); Red Blood Count 3.96 M/mcL (3.82-4.97); White Blood Count 4.1 K/mcL (4.3-11.1)
[2021-06-21 04:10] LABS: Alanine Aminotransferase 33 Units/L (7-52); Albumin 3.1 g/dL (3.5-5.7); Albumin/Globulin Ratio 0.9 (1.1-2.2); Alkaline Phosphatase 338 Units/L (34-104); Aspartate Amino Transferase 122 Units/L (13-39); BUN/Creatinine Ratio 5 (6-26); Bilirubin,Total 2.3 mg/dL (0.3-1.0); Blood Urea Nitrogen 4 mg/dL (6-20); Calcium 8.1 mg/dL (8.6-10.3); Carbon Dioxide 26 mEq/L (23-29); Chloride 104 mEq/L (98-107); Globulin 3.3 g/dL (2.4-3.5); Glucose 82 mg/dL (70-105); Osmolality,Calculated 282 (280-300); Potassium 4.2 mEq/L (3.5-5.1); Sodium 138 mEq/L (136-145); Total Protein 6.4 g/dL (6.4-8.9); eGFR For African Americans > 60 (> 60); eGFR For Non-African Americans > 60 (> 60)
[2021-06-21] MEDS ORDERED: Perflutren Lipid Microsphere 1.3 ML in 0.9 % Sodium Chloride 8.7 ML IVP PRN (04:13)
[2021-06-21 04:48] LABS: Basophils % 0.7 %; Eosinophils # 0.1 K/mcL (0.0-0.6); Eosinophils % 2.5 %; Hematocrit 43.7 % (35.3-44.9); Hemoglobin 14.1 g/dL (11.5-15.4); Immature Granulocytes % 0.9 % (0-4); Lymphocytes # 0.3 K/mcL (0.6-4.6); Lymphocytes % 5.7 %; Mean Corpuscular HGB Conc 32.3 g/dL (31.6-35.5); Mean Corpuscular Hemoglobin 33.7 pg (28.0-33.3); Mean Corpuscular Volume 104.3 fL (83.0-100.0); Mean Platelet Volume 9.6 fL (9.4-12.4); Monocytes # 0.2 K/mcL (0.0-1.3); Monocytes % 4.5 %; Neutrophils # 3.8 K/mcL (1.6-8.9); Platelet Count 132 K/mcL (140-400); Red Blood Count 4.19 M/mcL (3.82-4.97); Segmented Neutrophils % 85.7 %; White Blood Count 4.4 K/mcL (4.3-11.1)
[2021-06-21] MEDS ORDERED: *HR* HYDROmorphone 2 MG TABLET PO ONE (04:55)
[2021-06-21 04:57] LABS: Albumin 3.3 g/dL (3.5-5.7); Albumin/Globulin Ratio 1.1 (1.1-2.2); Bilirubin,Direct 1.3 mg/dL (0.0-0.2); Bilirubin,Indirect 1.1 mg/dL (0.0-1.0); Bilirubin,Total 2.4 mg/dL (0.3-1.0); Globulin 3.1 g/dL (2.4-3.5); Total Protein 6.4 g/dL (6.4-8.9)
[2021-06-21 04:57] LABS: Chol/HDL Ratio 1.9 (0-4.9); Cholesterol 154 mg/dL (< 200); HDL Cholesterol 81 mg/dL (40-59); LDL Cholesterol,Calculated 50 mg/dL (< 100); Magnesium 1.8 mg/dL (1.6-2.6); Triglycerides 113 mg/dL (< 150); Troponin I < 0.03 ng/mL (< 0.04)
[2021-06-21] MEDS ORDERED: Calcium Gluconate 1gm/50mL 1 GM/50 ML BAG IVPB ONE (05:15)
[2021-06-21 05:42] LABS: Folate 8.9 ng/mL (3.0-16.0)
[2021-06-21 05:43] LABS: Heparin anti-factor XA UFH 0.42 IU/mL (0.30-0.70)
[2021-06-21 05:44] LABS: INR 1.2; Prothrombin Time 13.8 Seconds (9.4-12.1)
[2021-06-21 06:03] LABS: Activated Partial Thrombo Time 162.7 Seconds (26.0-36.0)
[2021-06-21 06:08] LABS: Estimated Average Glucose 71 mg/dl; Hemoglobin A1C 4.1 %
[2021-06-21 06:20] LABS: Bacteria,Urine Few per hpf (None-Few); Bilirubin,Urine Small (Negative); Blood,Urine Moderate (Negative); Clarity,Urine Turbid (Clear); Color,Urine Dark-Yellow (Yellow); Glucose,Urine (UA) Normal (Normal); Ketones,Urine Trace mg/dL (Negative); Leukocyte Esterase,Urine Negative (Negative); Mucus,Urine Few per lpf (None-Few); Nitrite,Urine Negative (Negative); Protein,Urine 70 mg/dL (Neg-Trace); RBC,Urine TNTC per hpf (0-3); Specific Gravity,Urine 1.023 (1.010-1.025); Squamous Epithelial Cell,Urine Few per hpf (None-Few)
[2021-06-21] MEDS: tiZANidine 4 MG TABLET PO PRN (08:06)
[2021-06-21] MEDS: Aspirin Enteric Coated 81 MG Tablet PO SCH (08:10)
[2021-06-21] MEDS ORDERED: Metoprolol XL (24 HR) Succ 25 MG TAB.ER.24H PO SCH (09:00)
[2021-06-21] MEDS ORDERED: *HR* FentaNYL (PF) 100 MCG/2 ML VIAL IVP PRN ×2 (11:26→14:27)
[2021-06-21] MEDS ORDERED: *HR* HYDROmorphone PF 0.5 MG/0.5 ML SYRINGE IVP PRN ×2 (11:26→14:27)
[2021-06-21] MEDS ORDERED: Ondansetron 4 MG/2 ML VIAL IVP PRN ×2 (11:26→14:27)
[2021-06-21] MEDS ORDERED: *HR* Propofol 200 MG/20 ML VIAL IVP ONE (14:02)
[2021-06-21] MEDS ORDERED: *HR* Rocuronium Bromide 50 MG/5 ML VIAL ONE (14:03)
[2021-06-21] MEDS ORDERED: Ondansetron 4 MG/2 ML VIAL ONE (14:03)
[2021-06-21] MEDS ORDERED: Lidocaine -MPF 2% 2 ML VIAL ONE (14:03)
[2021-06-21] MEDS ORDERED: *HR* HYDROMORPHONE 2 MG/ML VIAL ONE ×2 (14:13→14:35)
[2021-06-21] MEDS ORDERED: *HR* OxyCODONE Immed Rel 5 MG TABLET PO PRN (14:27)
[2021-06-21] MEDS ORDERED: *HR* Midazolam HCl 2 MG/2 ML VIAL ONE (14:27)
[2021-06-21] MEDS ORDERED: *HR* FentaNYL (PF) 100 MCG/2 ML VIAL ONE (14:27)
[2021-06-21] MEDS ORDERED: Famotidine 20 MG/2 ML VIAL IVP ONE (14:27)
[2021-06-21] MEDS ORDERED: Lidocaine HCL 4 ML Topical Solution (Laryng-O-Jet Kit Sterile Pak) TP ONE (14:29)
[2021-06-21] MEDS ORDERED: Vancomycin 1,000 MG VIAL ONE (14:34)
[2021-06-21] MEDS ORDERED: Ethanol\\Acetic Acid\\Na Ace\\Ben 1,000 ML IRRIG.SOLN IR ONE (14:34)
[2021-06-21] MEDS ORDERED: Ipratropium/Albuterol Neb 3 ML IH ONE (14:36)
[2021-06-21] MEDS ORDERED: *HR* HYDROmorphone 2 MG/ML SYRINGE IVP ONE (14:43)
[2021-06-21] MEDS ORDERED: NON-FORMULARY MEDICATION 1 EACH EACH (Pantoprazole Sodium [Protonix] 40 MG Tablet.Dr) PO PRN (16:01)
[2021-06-21] MEDS ORDERED: Melatonin 3 MG TABLET PO PRN (16:01)
[2021-06-21] MEDS ORDERED: Mirtazapine 15 MG TABLET PO PRN (16:01)
[2021-06-21] MEDS ORDERED: Acetaminophen 325 MG TABLET PO PRN (16:01)
[2021-06-21] MEDS ORDERED: Levalbuterol Neb 0.63 MG/3 ML IH SCH (16:15)
[2021-06-21] MEDS ORDERED: *HR* Metoprolol 5 MG/5 ML VIAL IVP ONE (16:44)
[2021-06-21] MEDS ORDERED: 0.9 % Sodium Chloride 500 ML IVC ONE (17:07)
[2021-06-21] MEDS: Ringers Solution, Lactated 1,000 ML IVC SCH (19:05)
[2021-06-21] MEDS: Ipratropium Neb 0.5 MG NEBULIZER IH SCH ×3 (19:33→19:36)
[2021-06-21] MEDS: Metoprolol XL (24 HR) Succ 50 MG TAB.ER.24H PO SCH (20:28)
[2021-06-22] MEDS: Heparin 25,000UNIT/250ML 1/2NS 25,000 UNIT/250 ML IV.SOLN IVC SCH (00:03)
[2021-06-22] MEDS: Levalbuterol Neb 1.25 MG/3 ML IH SCH ×7 (00:34→20:13)
[2021-06-22 01:47] LABS: Basophils % 0.5 %; Eosinophils # 0.1 K/mcL (0.0-0.6); Eosinophils % 0.7 %; Hematocrit 38.5 % (35.3-44.9); Immature Granulocytes % 0.3 % (0-4); Lymphocytes # 0.8 K/mcL (0.6-4.6); Mean Corpuscular HGB Conc 32.2 g/dL (31.6-35.5); Mean Corpuscular Hemoglobin 33.4 pg (28.0-33.3); Mean Corpuscular Volume 103.8 fL (83.0-100.0); Mean Platelet Volume 9.8 fL (9.4-12.4); Monocytes # 0.5 K/mcL (0.0-1.3); Monocytes % 6.5 %; Platelet Count 110 K/mcL (140-400); Red Blood Count 3.71 M/mcL (3.82-4.97); Red Cell Distribution Width 12.1 % (11.5-14.5)
[2021-06-22 01:50] LABS: Hemoglobin 12.4 g/dL (11.5-15.4); White Blood Count 7.4 K/mcL (4.3-11.1)
[2021-06-22 02:08] LABS: Alanine Aminotransferase 25 Units/L (7-52); Albumin 2.9 g/dL (3.5-5.7); Albumin/Globulin Ratio 0.9 (1.1-2.2); Alkaline Phosphatase 278 Units/L (34-104); Aspartate Amino Transferase 86 Units/L (13-39); BUN/Creatinine Ratio 8 (6-26); Bilirubin,Total 2.8 mg/dL (0.3-1.0); Blood Urea Nitrogen 6 mg/dL (6-20); Calcium 8.3 mg/dL (8.6-10.3); Carbon Dioxide 18 mEq/L (23-29); Chloride 100 mEq/L (98-107); Globulin 3.1 g/dL (2.4-3.5); Glucose 62 mg/dL (70-105); Osmolality,Calculated 272 (280-300); Potassium 3.9 mEq/L (3.5-5.1); Sodium 133 mEq/L (136-145); eGFR For African Americans > 60 (> 60); eGFR For Non-African Americans > 60 (> 60)
[2021-06-22] MEDS: *HR* Heparin 5,000 UNIT/ML VIAL IVP PRN (02:39)
[2021-06-22] MEDS: Ipratropium Neb 0.5 MG NEBULIZER IH SCH ×3 (03:28→16:35)
[2021-06-22] MEDS ORDERED: Multivit/Ca/Min/Fe/FA 1 TAB TABLET PO SCH (09:00)
[2021-06-22] MEDS: Metoprolol XL (24 HR) Succ 50 MG TAB.ER.24H PO SCH ×2 (10:29→19:59)
[2021-06-22] MEDS: Thiamine (B-1) 100 MG TABLET PO SCH (10:29)
[2021-06-22] MEDS: Cyanocobalamin (B-12) 1,000 MCG TABLET PO SCH (10:30)
[2021-06-22] MEDS: Folic Acid 1 MG TABLET PO SCH (10:30)
[2021-06-22] MEDS ORDERED: Ipratropium/Albuterol Neb 3 ML IH ONE ×2 (11:05→16:21)
[2021-06-22] MEDS ORDERED: Ondansetron 4 MG/2 ML VIAL IVP PRN ×2 (11:07→16:01)
[2021-06-22] MEDS ORDERED: *HR* HYDROmorphone PF 0.5 MG/0.5 ML SYRINGE IVP PRN (11:07)
[2021-06-22] MEDS ORDERED: Ipratropium Neb 0.5 MG NEBULIZER IH PRN (11:07)
[2021-06-22] MEDS ORDERED: *HR* FentaNYL (PF) 100 MCG/2 ML VIAL IVP PRN (11:07)
[2021-06-22] MEDS ORDERED: Vancomycin 1,000 MG VIAL ONE (11:31)
[2021-06-22] MEDS ORDERED: Lidocaine HCL 4 ML Topical Solution (Laryng-O-Jet Kit Sterile Pak) TP ONE (11:31)
[2021-06-22] MEDS ORDERED: *HR* Propofol 200 MG/20 ML VIAL IVP ONE (11:32)
[2021-06-22] MEDS ORDERED: *HR* Succinylcholine 200 MG/10 ML VIAL IVP ONE (11:32)
[2021-06-22] MEDS ORDERED: Ondansetron 4 MG/2 ML VIAL ONE (11:32)
[2021-06-22] MEDS ORDERED: Lidocaine -MPF 2% 2 ML VIAL ONE ×2 (11:32→11:47)
[2021-06-22] MEDS ORDERED: *HR* Rocuronium Bromide 50 MG/5 ML VIAL ONE (11:32)
[2021-06-22] MEDS ORDERED: *HR* Phenylephrine 10 MG/ML VIAL ONE (11:32)
[2021-06-22] MEDS ORDERED: *HR* FentaNYL (PF) 100 MCG/2 ML VIAL ONE (11:32)
[2021-06-22] MEDS ORDERED: *HR* Midazolam HCl 2 MG/2 ML VIAL ONE ×2 (11:33→13:02)
[2021-06-22] MEDS ORDERED: Heparin 1,000 UNITS/500 mL 500 ML ONE (12:01)
[2021-06-22] MEDS ORDERED: Albumin Human 5% 12.5 GM/250 ML IV.SOLN ONE ×2 (12:13→14:19)
[2021-06-22] MEDS ORDERED: *HR* Vasopressin 20 UNIT/ML VIAL ONE (12:17)
[2021-06-22] MEDS ORDERED: Tranexamic Acid 1,000 MG/10 ML VIAL ONE (13:19)
[2021-06-22] MEDS ORDERED: *HR* HYDROMORPHONE 2 MG/ML VIAL ONE (13:24)
[2021-06-22] MEDS ORDERED: Acetaminophen IV 1,000 MG/100 ML BAG IVPB ONE (13:43)
[2021-06-22] MEDS ORDERED: Sugammadex Sodium 200 MG/2 ML VIAL IV ONE (14:26)
[2021-06-22] MEDS ORDERED: *HR* Promethazine 25 MG/ML VIAL IM PRN (16:01)
[2021-06-22] MEDS ORDERED: MOM Conc 10 ML UD.LIQ PO PRN (16:01)
[2021-06-22] MEDS ORDERED: Sennosides 8.6 MG TABLET PO PRN (16:01)
[2021-06-22] MEDS ORDERED: Naloxone 0.4 MG/ML INJ IVP PRN (16:01)
[2021-06-22] MEDS ORDERED: Ipratropium/Albuterol Neb 3 ML ONE (16:16)
[2021-06-22] MEDS ORDERED: TOTAL JOINT MIXTURE (100ML) INTRAART ONE (17:30)
[2021-06-22] MEDS ORDERED: Povidone-Iodine 45 ML, Sodium Chloride IRRigation 1,000 ML IR ONE (17:30)
[2021-06-22] MEDS: Aspirin Enteric Coated 81 MG Tablet PO SCH (17:52)
[2021-06-22] MEDS: Loratadine 10 MG TABLET PO SCH (17:52)
[2021-06-22] MEDS: Fluticasone Propionate Nasal 50 MCG/SPRAY BOTTLE NS SCH (17:52)
[2021-06-22] MEDS: Ringers Solution, Lactated 1,000 ML IVC SCH (17:53)
[2021-06-22] MEDS: Lactulose Oral Soln 20 GM/30 ML UDC PO SCH (17:54)
[2021-06-22] MEDS: Ascorbic Acid 500 MG TABLET PO SCH (19:59)
[2021-06-22] MEDS: CeFAZolin 2 GM/120 ML BAG IVPB SCH (20:02)
[2021-06-23] MEDS: Ipratropium Neb 0.5 MG NEBULIZER IH SCH ×6 (00:23→21:19)
[2021-06-23] MEDS: Levalbuterol Neb 1.25 MG/3 ML IH SCH ×6 (00:23→21:19)
[2021-06-23] MEDS ORDERED: *HR* Metoprolol 5 MG/5 ML VIAL IVP ONE ×2 (00:28→00:44)
[2021-06-23] MEDS: Heparin 25,000UNIT/250ML 1/2NS 25,000 UNIT/250 ML IV.SOLN IVC SCH ×2 (01:39→18:59)
[2021-06-23] MEDS: CeFAZolin 2 GM/120 ML BAG IVPB SCH (03:58)
[2021-06-23 05:08] LABS: Basophils % 0.5 %; Eosinophils # 0.2 K/mcL (0.0-0.6); Eosinophils % 2.6 %; Hematocrit 32.6 % (35.3-44.9); Immature Granulocytes % 0.5 % (0-4); Lymphocytes # 0.8 K/mcL (0.6-4.6); Lymphocytes % 12.5 %; Mean Corpuscular HGB Conc 32.5 g/dL (31.6-35.5); Mean Corpuscular Hemoglobin 33.2 pg (28.0-33.3); Mean Corpuscular Volume 102.2 fL (83.0-100.0); Mean Platelet Volume 9.8 fL (9.4-12.4); Monocytes # 0.5 K/mcL (0.0-1.3); Monocytes % 7.4 %; Neutrophils # 5.1 K/mcL (1.6-8.9); Platelet Count 122 K/mcL (140-400); Red Blood Count 3.19 M/mcL (3.82-4.97); Red Cell Distribution Width 11.9 % (11.5-14.5); Segmented Neutrophils % 76.5 %; White Blood Count 6.6 K/mcL (4.3-11.1)
[2021-06-23 05:11] LABS: Hemoglobin 10.6 g/dL (11.5-15.4)
[2021-06-23] MEDS: *HR* Heparin 5,000 UNIT/ML VIAL IVP PRN ×3 (05:20→23:32)
[2021-06-23 05:31] LABS: Alanine Aminotransferase 18 Units/L (7-52); Albumin 2.7 g/dL (3.5-5.7); Alkaline Phosphatase 210 Units/L (34-104); Aspartate Amino Transferase 63 Units/L (13-39); BUN/Creatinine Ratio 15 (6-26); Bilirubin,Total 1.4 mg/dL (0.3-1.0); Blood Urea Nitrogen 11 mg/dL (6-20); Calcium 8.4 mg/dL (8.6-10.3); Carbon Dioxide 20 mEq/L (23-29); Chloride 100 mEq/L (98-107); Globulin 2.8 g/dL (2.4-3.5); Glucose 68 mg/dL (70-105); Osmolality,Calculated 276 (280-300); Sodium 134 mEq/L (136-145); Total Protein 5.5 g/dL (6.4-8.9); eGFR For African Americans > 60 (> 60); eGFR For Non-African Americans > 60 (> 60)
[2021-06-23] MEDS: Aspirin Enteric Coated 81 MG Tablet PO SCH (08:16)
[2021-06-23] MEDS: Ascorbic Acid 500 MG TABLET PO SCH ×2 (08:17→16:05)
[2021-06-23] MEDS: Cyanocobalamin (B-12) 1,000 MCG TABLET PO SCH (08:17)
[2021-06-23] MEDS: Thiamine (B-1) 100 MG TABLET PO SCH (08:17)
[2021-06-23] MEDS: Multivit/Ca/Min/Fe/FA 1 TAB TABLET PO SCH (08:18)
[2021-06-23] MEDS: Loratadine 10 MG TABLET PO SCH (08:19)
[2021-06-23] MEDS: Folic Acid 1 MG TABLET PO SCH (08:19)
[2021-06-23] MEDS: Metoprolol XL (24 HR) Succ 50 MG TAB.ER.24H PO SCH ×2 (08:19→21:00)
[2021-06-23] MEDS: Lactulose Oral Soln 20 GM/30 ML UDC PO SCH (08:21)
[2021-06-23] MEDS: Fluticasone Propionate Nasal 50 MCG/SPRAY BOTTLE NS SCH (08:23)
[2021-06-23 13:42] LABS: Hematocrit 33.5 % (35.3-44.9); Hemoglobin 11.3 g/dL (11.5-15.4)
[2021-06-23] MEDS: *HR* HYDROmorphone (PF) 1 MG/ML SYRINGE IVP PRN ×2 (14:10→20:25)
[2021-06-24] MEDS: *HR* HYDROmorphone (PF) 1 MG/ML SYRINGE IVP PRN ×4 (02:35→21:20)
[2021-06-24] MEDS: Levalbuterol Neb 1.25 MG/3 ML IH SCH ×4 (02:57→22:38)
[2021-06-24] MEDS: Ipratropium Neb 0.5 MG NEBULIZER IH SCH ×4 (02:57→22:38)
[2021-06-24 08:12] LABS: Basophils % 0.6 %; Eosinophils # 0.1 K/mcL (0.0-0.6); Eosinophils % 2.7 %; Hematocrit 28.9 % (35.3-44.9); Immature Granulocytes % 0.3 % (0-4); Lymphocytes # 0.7 K/mcL (0.6-4.6); Lymphocytes % 20.1 %; Mean Corpuscular HGB Conc 33.6 g/dL (31.6-35.5); Mean Corpuscular Hemoglobin 33.3 pg (28.0-33.3); Mean Corpuscular Volume 99.3 fL (83.0-100.0); Mean Platelet Volume 10.2 fL (9.4-12.4); Monocytes # 0.5 K/mcL (0.0-1.3); Platelet Count 103 K/mcL (140-400); Red Blood Count 2.91 M/mcL (3.82-4.97); Red Cell Distribution Width 11.6 % (11.5-14.5); Segmented Neutrophils % 62.3 %
[2021-06-24 08:15] LABS: BUN/Creatinine Ratio 13 (6-26); Blood Urea Nitrogen 7 mg/dL (6-20); Calcium 8.3 mg/dL (8.6-10.3); Carbon Dioxide 26 mEq/L (23-29); Chloride 100 mEq/L (98-107); Glucose 82 mg/dL (70-105); Osmolality,Calculated 271 (280-300); Potassium 3.7 mEq/L (3.5-5.1); Sodium 132 mEq/L (136-145); eGFR For African Americans > 60 (> 60); eGFR For Non-African Americans > 60 (> 60)
[2021-06-24 08:21] LABS: Hemoglobin 9.7 g/dL (11.5-15.4); Neutrophils # 2.1 K/mcL (1.6-8.9); White Blood Count 3.3 K/mcL (4.3-11.1)
[2021-06-24] MEDS: Ascorbic Acid 500 MG TABLET PO SCH ×2 (08:42→17:58)
[2021-06-24] MEDS: Metoprolol XL (24 HR) Succ 50 MG TAB.ER.24H PO SCH ×2 (08:42→21:21)
[2021-06-24] MEDS: Folic Acid 1 MG TABLET PO SCH (08:42)
[2021-06-24] MEDS: Thiamine (B-1) 100 MG TABLET PO SCH (08:43)
[2021-06-24] MEDS: Aspirin Enteric Coated 81 MG Tablet PO SCH (08:43)
[2021-06-24] MEDS: Cyanocobalamin (B-12) 1,000 MCG TABLET PO SCH (08:43)
[2021-06-24] MEDS: Multivit/Ca/Min/Fe/FA 1 TAB TABLET PO SCH (08:43)
[2021-06-24] MEDS: Lactulose Oral Soln 20 GM/30 ML UDC PO SCH (08:44)
[2021-06-24] MEDS: Loratadine 10 MG TABLET PO SCH (08:56)
[2021-06-24] MEDS: Fluticasone Propionate Nasal 50 MCG/SPRAY BOTTLE NS SCH (08:58)
[2021-06-24 14:14] LABS: Hematocrit 31.6 % (35.3-44.9); Hemoglobin 10.6 g/dL (11.5-15.4)
[2021-06-24] MEDS: Heparin 25,000UNIT/250ML 1/2NS 25,000 UNIT/250 ML IV.SOLN IVC SCH (15:01)
[2021-06-24] MEDS: *HR* Heparin 5,000 UNIT/ML VIAL IVP PRN (15:03)
[2021-06-24] MEDS ORDERED: Warfarin perPT PO PRN (18:00)
[2021-06-24 21:08] LABS: Hematocrit 28.2 % (35.3-44.9); Hemoglobin 9.5 g/dL (11.5-15.4)
[2021-06-25] MEDS: Heparin 25,000UNIT/250ML 1/2NS 25,000 UNIT/250 ML IV.SOLN IVC SCH ×2 (03:19→18:14)
[2021-06-25 04:25] LABS: Basophils % 0.6 %; Eosinophils # 0.1 K/mcL (0.0-0.6); Eosinophils % 3.2 %; Hematocrit 26.5 % (35.3-44.9); Hemoglobin 8.9 g/dL (11.5-15.4); Immature Granulocytes % 0.3 % (0-4); Lymphocytes # 0.7 K/mcL (0.6-4.6); Lymphocytes % 23.6 %; Mean Corpuscular HGB Conc 33.6 g/dL (31.6-35.5); Mean Corpuscular Hemoglobin 33.2 pg (28.0-33.3); Mean Corpuscular Volume 98.9 fL (83.0-100.0); Mean Platelet Volume 9.5 fL (9.4-12.4); Monocytes # 0.5 K/mcL (0.0-1.3); Monocytes % 17.5 %; Neutrophils # 1.7 K/mcL (1.6-8.9); Platelet Count 115 K/mcL (140-400); Red Blood Count 2.68 M/mcL (3.82-4.97); Red Cell Distribution Width 11.6 % (11.5-14.5); Segmented Neutrophils % 54.8 %; White Blood Count 3.1 K/mcL (4.3-11.1)
[2021-06-25 04:39] LABS: INR 1.2; Prothrombin Time 13.3 Seconds (9.4-12.1)
[2021-06-25] MEDS: Levalbuterol Neb 1.25 MG/3 ML IH SCH ×4 (04:40→21:58)
[2021-06-25] MEDS: Ipratropium Neb 0.5 MG NEBULIZER IH SCH ×4 (04:40→21:58)
[2021-06-25 04:42] LABS: BUN/Creatinine Ratio 11 (6-26); Blood Urea Nitrogen 6 mg/dL (6-20); Calcium 7.9 mg/dL (8.6-10.3); Carbon Dioxide 25 mEq/L (23-29); Chloride 100 mEq/L (98-107); Glucose 87 mg/dL (70-105); Osmolality,Calculated 271 (280-300); Potassium 3.4 mEq/L (3.5-5.1); Sodium 132 mEq/L (136-145); eGFR For African Americans > 60 (> 60); eGFR For Non-African Americans > 60 (> 60)
[2021-06-25] MEDS: *HR* Heparin 5,000 UNIT/ML VIAL IVP PRN (05:01)
[2021-06-25] MEDS: *HR* HYDROmorphone (PF) 1 MG/ML SYRINGE IVP PRN ×2 (05:06→13:19)
[2021-06-25] MEDS: Cyanocobalamin (B-12) 1,000 MCG TABLET PO SCH (07:29)
[2021-06-25] MEDS: Thiamine (B-1) 100 MG TABLET PO SCH (07:29)
[2021-06-25] MEDS: Aspirin Enteric Coated 81 MG Tablet PO SCH (07:29)
[2021-06-25] MEDS: Loratadine 10 MG TABLET PO SCH (07:29)
[2021-06-25] MEDS: Ascorbic Acid 500 MG TABLET PO SCH ×2 (07:30→15:58)
[2021-06-25] MEDS: Fluticasone Propionate Nasal 50 MCG/SPRAY BOTTLE NS SCH (07:31)
[2021-06-25] MEDS: Folic Acid 1 MG TABLET PO SCH (07:31)
[2021-06-25] MEDS: Metoprolol XL (24 HR) Succ 50 MG TAB.ER.24H PO SCH ×2 (07:31→20:43)
[2021-06-25] MEDS: Multivit/Ca/Min/Fe/FA 1 TAB TABLET PO SCH (07:31)
[2021-06-25] MEDS: Lactulose Oral Soln 20 GM/30 ML UDC PO SCH (07:46)
[2021-06-25] MEDS: tiZANidine 4 MG TABLET PO PRN ×2 (10:39→18:58)
[2021-06-26] MEDS: Ipratropium Neb 0.5 MG NEBULIZER IH SCH ×4 (02:56→21:58)
[2021-06-26] MEDS: Ringers Solution, Lactated 1,000 ML IVC SCH (02:56)
[2021-06-26] MEDS: Levalbuterol Neb 1.25 MG/3 ML IH SCH ×4 (02:56→21:58)
[2021-06-26 04:22] LABS: Hemoglobin 8.3 g/dL (11.5-15.4)
[2021-06-26 04:32] LABS: INR 1.2; Prothrombin Time 13.1 Seconds (9.4-12.1)
[2021-06-26] MEDS: tiZANidine 4 MG TABLET PO PRN ×2 (04:36→16:07)
[2021-06-26 04:37] LABS: BUN/Creatinine Ratio 10 (6-26); Blood Urea Nitrogen 6 mg/dL (6-20); Calcium 8.2 mg/dL (8.6-10.3); Carbon Dioxide 25 mEq/L (23-29); Chloride 100 mEq/L (98-107); Glucose 100 mg/dL (70-105); Magnesium 1.9 mg/dL (1.6-2.6); Osmolality,Calculated 272 (280-300); Phosphorous 1.7 mg/dL (2.7-4.5); Potassium 3.9 mEq/L (3.5-5.1); Sodium 132 mEq/L (136-145); eGFR For African Americans > 60 (> 60); eGFR For Non-African Americans > 60 (> 60)
[2021-06-26] MEDS: Folic Acid 1 MG TABLET PO SCH (07:44)
[2021-06-26] MEDS: Ascorbic Acid 500 MG TABLET PO SCH ×2 (07:44→15:38)
[2021-06-26] MEDS: Multivit/Ca/Min/Fe/FA 1 TAB TABLET PO SCH (07:44)
[2021-06-26] MEDS: Cyanocobalamin (B-12) 1,000 MCG TABLET PO SCH (07:44)
[2021-06-26] MEDS: Thiamine (B-1) 100 MG TABLET PO SCH (07:45)
[2021-06-26] MEDS: Loratadine 10 MG TABLET PO SCH (07:45)
[2021-06-26] MEDS: Aspirin Enteric Coated 81 MG Tablet PO SCH (07:45)
[2021-06-26] MEDS: Fluticasone Propionate Nasal 50 MCG/SPRAY BOTTLE NS SCH (07:46)
[2021-06-26] MEDS: Lactulose Oral Soln 20 GM/30 ML UDC PO SCH (07:49)
[2021-06-26] MEDS: Metoprolol XL (24 HR) Succ 25 MG TAB.ER.24H PO SCH (08:26)
[2021-06-26] MEDS: Heparin 25,000UNIT/250ML 1/2NS 25,000 UNIT/250 ML IV.SOLN IVC SCH ×2 (08:50→23:07)
[2021-06-26] MEDS: *HR* HYDROmorphone (PF) 1 MG/ML SYRINGE IVP PRN ×2 (15:39→22:16)
[2021-06-27] MEDS: tiZANidine 4 MG TABLET PO PRN ×3 (01:29→21:03)
[2021-06-27 04:32] LABS: Basophils % 0.9 %; Eosinophils # 0.1 K/mcL (0.0-0.6); Eosinophils % 3.2 %; Hematocrit 23.4 % (35.3-44.9); Hemoglobin 7.7 g/dL (11.5-15.4); Immature Granulocytes % 1.4 % (0-4); Lymphocytes # 1.1 K/mcL (0.6-4.6); Lymphocytes % 31.1 %; Mean Corpuscular HGB Conc 32.9 g/dL (31.6-35.5); Mean Corpuscular Hemoglobin 33.2 pg (28.0-33.3); Mean Corpuscular Volume 100.9 fL (83.0-100.0); Mean Platelet Volume 10.2 fL (9.4-12.4); Monocytes # 0.6 K/mcL (0.0-1.3); Monocytes % 16.4 %; Platelet Count 184 K/mcL (140-400); Red Blood Count 2.32 M/mcL (3.82-4.97); Red Cell Distribution Width 12.1 % (11.5-14.5); White Blood Count 3.5 K/mcL (4.3-11.1)
[2021-06-27 04:41] LABS: INR 1.2; Prothrombin Time 13.5 Seconds (9.4-12.1)
[2021-06-27 04:49] LABS: BUN/Creatinine Ratio 9 (6-26); Blood Urea Nitrogen 6 mg/dL (6-20); Calcium 8.2 mg/dL (8.6-10.3); Carbon Dioxide 27 mEq/L (23-29); Chloride 102 mEq/L (98-107); Creatine Kinase 40 Units/L (30-223); Glucose 114 mg/dL (70-105); Magnesium 1.8 mg/dL (1.6-2.6); Osmolality,Calculated 276 (280-300); Phosphorous 2.3 mg/dL (2.7-4.5); Potassium 3.8 mEq/L (3.5-5.1); Sodium 134 mEq/L (136-145); eGFR For African Americans > 60 (> 60); eGFR For Non-African Americans > 60 (> 60)
[2021-06-27 04:53] LABS: Neutrophils # 1.7 K/mcL (1.6-8.9)
[2021-06-27] MEDS: Levalbuterol Neb 1.25 MG/3 ML IH SCH ×4 (05:03→21:38)
[2021-06-27] MEDS: Ipratropium Neb 0.5 MG NEBULIZER IH SCH ×4 (05:03→21:38)
[2021-06-27 05:17] LABS: Anisocytosis 1+ (Not Present)
[2021-06-27 05:18] LABS: Platelet Estimate Normal (Normal)
[2021-06-27] MEDS: Multivit/Ca/Min/Fe/FA 1 TAB TABLET PO SCH (08:46)
[2021-06-27] MEDS: Cyanocobalamin (B-12) 1,000 MCG TABLET PO SCH (08:46)
[2021-06-27] MEDS: Metoprolol XL (24 HR) Succ 25 MG TAB.ER.24H PO SCH (08:47)
[2021-06-27] MEDS: Aspirin Enteric Coated 81 MG Tablet PO SCH (08:48)
[2021-06-27] MEDS: Ascorbic Acid 500 MG TABLET PO SCH ×2 (08:48→17:39)
[2021-06-27] MEDS: Loratadine 10 MG TABLET PO SCH (08:48)
[2021-06-27] MEDS: Lactulose Oral Soln 20 GM/30 ML UDC PO SCH ×2 (08:48→10:22)
[2021-06-27] MEDS: Folic Acid 1 MG TABLET PO SCH (08:48)
[2021-06-27] MEDS: Thiamine (B-1) 100 MG TABLET PO SCH (08:48)
[2021-06-27] MEDS ORDERED: Acetaminophen IV 1,000 MG/100 ML BAG IVPB ONE (09:29)
[2021-06-27] MEDS: FLUoxetine 20 MG CAPSULE PO SCH (10:21)
[2021-06-27] MEDS: Fluticasone Propionate Nasal 50 MCG/SPRAY BOTTLE NS SCH (10:23)
[2021-06-27] MEDS: Heparin 25,000UNIT/250ML 1/2NS 25,000 UNIT/250 ML IV.SOLN IVC SCH (17:35)
[2021-06-27] MEDS: Gabapentin 400 MG CAPSULE PO SCH ×2 (17:40→21:04)
[2021-06-27] MEDS ORDERED: *HR* Warfarin 3 MG TABLET PO ONE (18:00)
[2021-06-27] MEDS: ALPRAZolam 0.25 MG TABLET PO PRN (21:03)
[2021-06-27] MEDS: Nicotine 14 MG PATCH.TD24 TD SCH (21:04)
[2021-06-27 22:43] LABS: Hematocrit 22.4 % (35.3-44.9); Hemoglobin 7.2 g/dL (11.5-15.4)
[2021-06-28] MEDS: Ringers Solution, Lactated 1,000 ML IVC SCH (01:34)
[2021-06-28] MEDS: *HR* HYDROmorphone (PF) 1 MG/ML SYRINGE IVP PRN ×2 (04:00→21:33)
[2021-06-28] MEDS: Ipratropium Neb 0.5 MG NEBULIZER IH SCH ×4 (04:11→22:44)
[2021-06-28] MEDS: Levalbuterol Neb 1.25 MG/3 ML IH SCH ×4 (04:11→22:44)
[2021-06-28] MEDS: tiZANidine 4 MG TABLET PO PRN ×3 (05:44→22:45)
[2021-06-28] MEDS: ALPRAZolam 0.25 MG TABLET PO PRN ×2 (05:44→22:44)
[2021-06-28 05:49] LABS: Hematocrit 22.3 % (35.3-44.9); Hemoglobin 7.1 g/dL (11.5-15.4)
[2021-06-28 06:05] LABS: INR 1.4; Prothrombin Time 15.2 Seconds (9.4-12.1)
[2021-06-28] MEDS: Metoprolol XL (24 HR) Succ 25 MG TAB.ER.24H PO SCH (08:31)
[2021-06-28] MEDS: Gabapentin 400 MG CAPSULE PO SCH ×3 (08:31→20:29)
[2021-06-28] MEDS: Folic Acid 1 MG TABLET PO SCH (08:31)
[2021-06-28] MEDS: Loratadine 10 MG TABLET PO SCH (08:32)
[2021-06-28] MEDS: Multivit/Ca/Min/Fe/FA 1 TAB TABLET PO SCH (08:32)
[2021-06-28] MEDS: Aspirin Enteric Coated 81 MG Tablet PO SCH (08:32)
[2021-06-28] MEDS: Nicotine 14 MG PATCH.TD24 TD SCH (08:32)
[2021-06-28] MEDS: Ascorbic Acid 500 MG TABLET PO SCH ×2 (08:32→20:30)
[2021-06-28] MEDS: FLUoxetine 20 MG CAPSULE PO SCH (08:32)
[2021-06-28] MEDS: Cyanocobalamin (B-12) 1,000 MCG TABLET PO SCH (08:32)
[2021-06-28] MEDS: Thiamine (B-1) 100 MG TABLET PO SCH (08:32)
[2021-06-28] MEDS: Lactulose Oral Soln 20 GM/30 ML UDC PO SCH (08:33)
[2021-06-28] MEDS: Fluticasone Propionate Nasal 50 MCG/SPRAY BOTTLE NS SCH (08:33)
[2021-06-28] MEDS: Heparin 25,000UNIT/250ML 1/2NS 25,000 UNIT/250 ML IV.SOLN IVC SCH (08:37)
[2021-06-28 15:42] LABS: Hematocrit 17.9 % (35.3-44.9)
[2021-06-28 15:49] LABS: Hemoglobin 5.9 g/dL (11.5-15.4)
[2021-06-28] MEDS ORDERED: 0.9 % Sodium Chloride 250 ML IVC SCH (16:00)
[2021-06-28] MEDS ORDERED: 0.9 % Sodium Chloride 500 ML ONE (16:31)
[2021-06-28] MEDS ORDERED: Isovue-370 500 ML BOTTLE IVP ONE (16:35)
[2021-06-28] MEDS ORDERED: *HR* Warfarin 2.5 MG TABLET PO ONE (18:00)
[2021-06-28] MEDS ORDERED: Warfarin 3 MG, Warfarin 0.5 MG PO ONE (18:00)
[2021-06-28 22:37] LABS: Basophils % 0.5 %; Eosinophils # 0.1 K/mcL (0.0-0.6); Eosinophils % 1.5 %; Hematocrit 22.2 % (35.3-44.9); Hemoglobin 7.3 g/dL (11.5-15.4); Immature Granulocytes % 1.9 % (0-4); Lymphocytes % 17.5 %; Mean Corpuscular HGB Conc 32.9 g/dL (31.6-35.5); Mean Corpuscular Hemoglobin 32.6 pg (28.0-33.3); Mean Corpuscular Volume 99.1 fL (83.0-100.0); Mean Platelet Volume 9.7 fL (9.4-12.4); Monocytes % 17.5 %; Platelet Count 321 K/mcL (140-400); Red Blood Count 2.24 M/mcL (3.82-4.97); Red Cell Distribution Width 15.4 % (11.5-14.5); Segmented Neutrophils % 61.1 %; White Blood Count 5.8 K/mcL (4.3-11.1)
[2021-06-28 23:39] LABS: Neutrophils # 3.5 K/mcL (1.6-8.9)
[2021-06-29 05:26] LABS: INR 1.4; Prothrombin Time 15.6 Seconds (9.4-12.1)
[2021-06-29] MEDS: *HR* HYDROmorphone (PF) 1 MG/ML SYRINGE IVP PRN ×2 (05:40→12:57)
[2021-06-29] MEDS: Levalbuterol Neb 1.25 MG/3 ML IH SCH ×4 (05:40→22:58)
[2021-06-29] MEDS: Ipratropium Neb 0.5 MG NEBULIZER IH SCH ×4 (05:40→22:58)
[2021-06-29] MEDS: Ascorbic Acid 500 MG TABLET PO SCH ×2 (08:34→17:19)
[2021-06-29] MEDS: Cyanocobalamin (B-12) 1,000 MCG TABLET PO SCH (08:34)
[2021-06-29] MEDS: Multivit/Ca/Min/Fe/FA 1 TAB TABLET PO SCH (08:34)
[2021-06-29] MEDS: Gabapentin 400 MG CAPSULE PO SCH ×3 (08:34→19:50)
[2021-06-29] MEDS: Thiamine (B-1) 100 MG TABLET PO SCH (08:34)
[2021-06-29] MEDS: Folic Acid 1 MG TABLET PO SCH (08:34)
[2021-06-29] MEDS: Fluticasone Propionate Nasal 50 MCG/SPRAY BOTTLE NS SCH (08:35)
[2021-06-29] MEDS: Metoprolol XL (24 HR) Succ 25 MG TAB.ER.24H PO SCH (08:35)
[2021-06-29] MEDS: Aspirin Enteric Coated 81 MG Tablet PO SCH (08:35)
[2021-06-29] MEDS: Loratadine 10 MG TABLET PO SCH (08:38)
[2021-06-29] MEDS: FLUoxetine 20 MG CAPSULE PO SCH (08:38)
[2021-06-29] MEDS: Nicotine 14 MG PATCH.TD24 TD SCH (08:39)
[2021-06-29] MEDS: Lactulose Oral Soln 20 GM/30 ML UDC PO SCH (08:40)
[2021-06-29] MEDS: ALPRAZolam 0.25 MG TABLET PO PRN (10:34)
[2021-06-29 11:59] LABS: Hematocrit 26.5 % (35.3-44.9); Hemoglobin 8.6 g/dL (11.5-15.4)
[2021-06-29] MEDS ORDERED: Iron Sucrose Complex 400 MG in 0.9 % Sodium Chloride 250 ML IVPB ONE (13:27)
[2021-06-29] MEDS: tiZANidine 4 MG TABLET PO PRN (14:30)
[2021-06-29] MEDS: Acetaminophen 325 MG TABLET PO SCH ×2 (14:30→19:50)
[2021-06-29] MEDS ORDERED: 0.9 % Sodium Chloride 500 ML IVC ONE (16:37)
[2021-06-29] MEDS ORDERED: *HR* Warfarin 5 MG TABLET PO ONE (18:00)
[2021-06-29 19:16] LABS: Hematocrit 24.6 % (35.3-44.9); Hemoglobin 7.9 g/dL (11.5-15.4)
[2021-06-29] MEDS: rOPINIRole 1 MG TABLET PO SCH (19:49)
[2021-06-30] MEDS: Acetaminophen 325 MG TABLET PO SCH ×4 (02:00→20:27)
[2021-06-30] MEDS: tiZANidine 4 MG TABLET PO PRN (02:06)
[2021-06-30] MEDS: Levalbuterol Neb 1.25 MG/3 ML IH SCH ×4 (04:56→22:00)
[2021-06-30] MEDS: Ipratropium Neb 0.5 MG NEBULIZER IH SCH ×4 (04:56→22:00)
[2021-06-30 04:58] LABS: Hematocrit 25.4 % (35.3-44.9)
[2021-06-30 05:12] LABS: INR 1.5
[2021-06-30 05:13] LABS: Alanine Aminotransferase 13 Units/L (7-52); Albumin 2.4 g/dL (3.5-5.7); Albumin/Globulin Ratio 0.8 (1.1-2.2); Alkaline Phosphatase 186 Units/L (34-104); Aspartate Amino Transferase 28 Units/L (13-39); BUN/Creatinine Ratio 14 (6-26); Bilirubin,Total 1.3 mg/dL (0.3-1.0); Blood Urea Nitrogen 10 mg/dL (6-20); Carbon Dioxide 25 mEq/L (23-29); Chloride 101 mEq/L (98-107); Globulin 3.1 g/dL (2.4-3.5); Glucose 92 mg/dL (70-105); Osmolality,Calculated 275 (280-300); Potassium 3.8 mEq/L (3.5-5.1); Sodium 133 mEq/L (136-145); Total Protein 5.5 g/dL (6.4-8.9); eGFR For African Americans > 60 (> 60); eGFR For Non-African Americans > 60 (> 60)
[2021-06-30] MEDS ORDERED: 0.9 % Sodium Chloride 1,000 ML IVC SCH (07:30)
[2021-06-30] MEDS: FLUoxetine 20 MG CAPSULE PO SCH (07:43)
[2021-06-30] MEDS: Folic Acid 1 MG TABLET PO SCH (07:43)
[2021-06-30] MEDS: Multivit/Ca/Min/Fe/FA 1 TAB TABLET PO SCH (07:43)
[2021-06-30] MEDS: Aspirin Enteric Coated 81 MG Tablet PO SCH (07:43)
[2021-06-30] MEDS: Ascorbic Acid 500 MG TABLET PO SCH ×2 (07:43→16:59)
[2021-06-30] MEDS: Cyanocobalamin (B-12) 1,000 MCG TABLET PO SCH (07:43)
[2021-06-30] MEDS: Loratadine 10 MG TABLET PO SCH (07:43)
[2021-06-30] MEDS: Gabapentin 400 MG CAPSULE PO SCH ×3 (07:44→20:26)
[2021-06-30] MEDS: Thiamine (B-1) 100 MG TABLET PO SCH (07:44)
[2021-06-30] MEDS: Fluticasone Propionate Nasal 50 MCG/SPRAY BOTTLE NS SCH (07:45)
[2021-06-30] MEDS: Nicotine 14 MG PATCH.TD24 TD SCH (07:45)
[2021-06-30] MEDS: Lactulose Oral Soln 20 GM/30 ML UDC PO SCH (07:48)
[2021-06-30] MEDS: Metoprolol XL (24 HR) Succ 25 MG TAB.ER.24H PO SCH (07:48)
[2021-06-30] MEDS ORDERED: Isovue-370 500 ML BOTTLE IVP ONE (12:10)
[2021-06-30] MEDS: ALPRAZolam 0.25 MG TABLET PO PRN (12:49)
[2021-06-30] MEDS ORDERED: *HR* OxyCODONE/APAP 5/325 TABLET PO PRN (16:09)
[2021-06-30] MEDS ORDERED: *HR* Warfarin 5 MG TABLET PO ONE (18:00)
[2021-06-30] MEDS: *HR* OxyCODONE/APAP 10/325 TABLET PO PRN (20:26)
[2021-06-30] MEDS: tiZANidine 4 MG TABLET PO SCH (20:27)
[2021-06-30] MEDS: Sennosides 8.6 MG TABLET PO SCH (20:27)
[2021-06-30] MEDS: rOPINIRole 1 MG TABLET PO SCH (20:27)
[2021-07-01] MEDS: ALPRAZolam 0.25 MG TABLET PO PRN ×3 (00:44→17:22)
[2021-07-01 02:46] LABS: Hematocrit 23.7 % (35.3-44.9); Hemoglobin 7.6 g/dL (11.5-15.4)
[2021-07-01 02:56] LABS: INR 1.5; Prothrombin Time 17.1 Seconds (9.4-12.1)
[2021-07-01] MEDS: Heparin 25,000UNIT/250ML 1/2NS 25,000 UNIT/250 ML IV.SOLN IVC SCH (03:14)
[2021-07-01] MEDS: Ipratropium Neb 0.5 MG NEBULIZER IH SCH ×4 (03:23→20:14)
[2021-07-01] MEDS: Levalbuterol Neb 1.25 MG/3 ML IH SCH ×4 (03:23→20:14)
[2021-07-01] MEDS: Acetaminophen 325 MG TABLET PO SCH ×4 (03:24→20:15)
[2021-07-01] MEDS: *HR* OxyCODONE/APAP 10/325 TABLET PO PRN ×3 (06:24→23:38)
[2021-07-01] MEDS: Nicotine 14 MG PATCH.TD24 TD SCH (07:52)
[2021-07-01] MEDS: Thiamine (B-1) 100 MG TABLET PO SCH (07:54)
[2021-07-01] MEDS: Loratadine 10 MG TABLET PO SCH (07:54)
[2021-07-01] MEDS: Aspirin Enteric Coated 81 MG Tablet PO SCH (07:54)
[2021-07-01] MEDS: Multivit/Ca/Min/Fe/FA 1 TAB TABLET PO SCH (07:54)
[2021-07-01] MEDS: Cyanocobalamin (B-12) 1,000 MCG TABLET PO SCH (07:55)
[2021-07-01] MEDS: FLUoxetine 20 MG CAPSULE PO SCH (07:55)
[2021-07-01] MEDS: tiZANidine 4 MG TABLET PO SCH ×3 (07:55→20:16)
[2021-07-01] MEDS: Folic Acid 1 MG TABLET PO SCH (07:56)
[2021-07-01] MEDS: Ascorbic Acid 500 MG TABLET PO SCH ×2 (07:56→15:01)
[2021-07-01] MEDS: Gabapentin 400 MG CAPSULE PO SCH ×3 (07:56→20:15)
[2021-07-01] MEDS: Metoprolol XL (24 HR) Succ 25 MG TAB.ER.24H PO SCH (07:56)
[2021-07-01] MEDS: Fluticasone Propionate Nasal 50 MCG/SPRAY BOTTLE NS SCH (07:57)
[2021-07-01] MEDS: Lactulose Oral Soln 20 GM/30 ML UDC PO SCH (08:05)
[2021-07-01] MEDS: *HR* HYDROmorphone (PF) 1 MG/ML SYRINGE IVP PRN ×2 (11:05→18:41)
[2021-07-01] MEDS: [UNRECOGNIZED DRUG - MIXTURE] TP PRN (15:02)
[2021-07-01] MEDS ORDERED: *HR* Warfarin 3 MG TABLET PO ONE (18:00)
[2021-07-01] MEDS: Sennosides 8.6 MG TABLET PO SCH (20:15)
[2021-07-01] MEDS: rOPINIRole 1 MG TABLET PO SCH (20:15)
[2021-07-02] MEDS: Levalbuterol Neb 1.25 MG/3 ML IH SCH ×4 (02:59→22:53)
[2021-07-02] MEDS: *HR* HYDROmorphone (PF) 1 MG/ML SYRINGE IVP PRN ×3 (02:59→20:26)
[2021-07-02] MEDS: Ipratropium Neb 0.5 MG NEBULIZER IH SCH ×4 (02:59→22:53)
[2021-07-02] MEDS: Acetaminophen 325 MG TABLET PO SCH ×4 (02:59→20:05)
[2021-07-02 06:37] LABS: Hematocrit 24.5 % (35.3-44.9); Hemoglobin 7.8 g/dL (11.5-15.4)
[2021-07-02 06:45] LABS: INR 1.5; Prothrombin Time 16.7 Seconds (9.4-12.1)
[2021-07-02] MEDS: Multivit/Ca/Min/Fe/FA 1 TAB TABLET PO SCH (08:52)
[2021-07-02] MEDS: Metoprolol XL (24 HR) Succ 25 MG TAB.ER.24H PO SCH (08:52)
[2021-07-02] MEDS: Cyanocobalamin (B-12) 1,000 MCG TABLET PO SCH (08:53)
[2021-07-02] MEDS: Aspirin Enteric Coated 81 MG Tablet PO SCH (08:53)
[2021-07-02] MEDS: Thiamine (B-1) 100 MG TABLET PO SCH (08:53)
[2021-07-02] MEDS: Folic Acid 1 MG TABLET PO SCH (08:53)
[2021-07-02] MEDS: Gabapentin 400 MG CAPSULE PO SCH ×3 (08:54→20:04)
[2021-07-02] MEDS: *HR* OxyCODONE/APAP 10/325 TABLET PO PRN ×2 (08:54→18:02)
[2021-07-02] MEDS: Nicotine 14 MG PATCH.TD24 TD SCH (08:55)
[2021-07-02] MEDS: Ascorbic Acid 500 MG TABLET PO SCH ×2 (08:55→18:02)
[2021-07-02] MEDS: tiZANidine 4 MG TABLET PO SCH ×3 (08:55→20:05)
[2021-07-02] MEDS: FLUoxetine 20 MG CAPSULE PO SCH (08:55)
[2021-07-02] MEDS: Lactulose Oral Soln 20 GM/30 ML UDC PO SCH (09:01)
[2021-07-02] MEDS: Fluticasone Propionate Nasal 50 MCG/SPRAY BOTTLE NS SCH (09:06)
[2021-07-02] MEDS: ALPRAZolam 0.25 MG TABLET PO PRN (11:14)
[2021-07-02] MEDS: Loratadine 10 MG TABLET PO SCH (11:17)
[2021-07-02] MEDS ORDERED: *HR* Warfarin 3 MG TABLET PO ONE (18:00)
[2021-07-02] MEDS: Vancomycin 1,250 MG/262.5 ML IV.SOLN IVPB SCH (18:21)
[2021-07-02] MEDS: Heparin 25,000UNIT/250ML 1/2NS 25,000 UNIT/250 ML IV.SOLN IVC SCH (19:44)
[2021-07-02] MEDS: rOPINIRole 1 MG TABLET PO SCH (20:04)
[2021-07-02] MEDS: Sennosides 8.6 MG TABLET PO SCH (20:05)
[2021-07-02] MEDS: [UNRECOGNIZED DRUG - MIXTURE] TP PRN (20:17)
[2021-07-03] MEDS: Heparin 25,000UNIT/250ML 1/2NS 25,000 UNIT/250 ML IV.SOLN IVC SCH (01:40)
[2021-07-03] MEDS: Acetaminophen 325 MG TABLET PO SCH ×4 (01:46→20:47)
[2021-07-03] MEDS: ALPRAZolam 0.25 MG TABLET PO PRN ×2 (01:46→13:30)
[2021-07-03] MEDS: *HR* OxyCODONE/APAP 10/325 TABLET PO PRN ×3 (03:33→20:56)
[2021-07-03 05:19] LABS: eGFR For African Americans > 60 (> 60); eGFR For Non-African Americans > 60 (> 60)
[2021-07-03 05:41] LABS: Hematocrit 26.3 % (35.3-44.9); Hemoglobin 8.1 g/dL (11.5-15.4)
[2021-07-03 05:45] LABS: INR 1.5; Prothrombin Time 16.3 Seconds (9.4-12.1)
[2021-07-03] MEDS: Ipratropium Neb 0.5 MG NEBULIZER IH SCH ×4 (05:51→20:56)
[2021-07-03] MEDS: Levalbuterol Neb 1.25 MG/3 ML IH SCH ×4 (05:51→20:56)
[2021-07-03] MEDS: *HR* HYDROmorphone (PF) 1 MG/ML SYRINGE IVP PRN ×2 (05:51→16:07)
[2021-07-03] MEDS: Vancomycin 1,250 MG/262.5 ML IV.SOLN IVPB SCH ×2 (05:52→16:45)
[2021-07-03] MEDS: Thiamine (B-1) 100 MG TABLET PO SCH (08:37)
[2021-07-03] MEDS: Aspirin Enteric Coated 81 MG Tablet PO SCH (08:37)
[2021-07-03] MEDS: Gabapentin 400 MG CAPSULE PO SCH ×3 (08:38→20:56)
[2021-07-03] MEDS: Loratadine 10 MG TABLET PO SCH (08:38)
[2021-07-03] MEDS: Metoprolol XL (24 HR) Succ 25 MG TAB.ER.24H PO SCH (08:38)
[2021-07-03] MEDS: Multivit/Ca/Min/Fe/FA 1 TAB TABLET PO SCH (08:39)
[2021-07-03] MEDS: Folic Acid 1 MG TABLET PO SCH (08:40)
[2021-07-03] MEDS: Cyanocobalamin (B-12) 1,000 MCG TABLET PO SCH (08:40)
[2021-07-03] MEDS: FLUoxetine 20 MG CAPSULE PO SCH (08:40)
[2021-07-03] MEDS: Nicotine 14 MG PATCH.TD24 TD SCH (08:41)
[2021-07-03] MEDS: Ascorbic Acid 500 MG TABLET PO SCH ×2 (08:41→16:18)
[2021-07-03] MEDS: tiZANidine 4 MG TABLET PO SCH ×3 (08:41→20:55)
[2021-07-03] MEDS: Fluticasone Propionate Nasal 50 MCG/SPRAY BOTTLE NS SCH (08:47)
[2021-07-03] MEDS: Lactulose Oral Soln 20 GM/30 ML UDC PO SCH (09:23)
[2021-07-03] MEDS ORDERED: *HR* Warfarin 7.5 MG TABLET PO ONE (18:00)
[2021-07-03 20:30] LABS: Basophils # 0.1 K/mcL (0.0-0.2); Basophils % 1.1 %; Eosinophils # 0.3 K/mcL (0.0-0.6); Eosinophils % 5.5 %; Hematocrit 29.7 % (35.3-44.9); Hemoglobin 9.2 g/dL (11.5-15.4); Immature Granulocytes % 0.9 % (0-4); Lymphocytes # 1.1 K/mcL (0.6-4.6); Lymphocytes % 20.7 %; Mean Corpuscular Hemoglobin 32.2 pg (28.0-33.3); Mean Corpuscular Volume 103.8 fL (83.0-100.0); Monocytes # 0.4 K/mcL (0.0-1.3); Monocytes % 7.7 %; Neutrophils # 3.5 K/mcL (1.6-8.9); Platelet Count 419 K/mcL (140-400); Red Blood Count 2.86 M/mcL (3.82-4.97); Red Cell Distribution Width 16.6 % (11.5-14.5); Segmented Neutrophils % 64.1 %; White Blood Count 5.4 K/mcL (4.3-11.1)
[2021-07-03] MEDS: rOPINIRole 1 MG TABLET PO SCH (20:55)
[2021-07-03] MEDS: Sennosides 8.6 MG TABLET PO SCH (20:56)
[2021-07-03] MEDS: [UNRECOGNIZED DRUG - MIXTURE] TP PRN (20:57)
[2021-07-04] MEDS: *HR* HYDROmorphone (PF) 1 MG/ML SYRINGE IVP PRN (00:16)
[2021-07-04] MEDS: Heparin 25,000UNIT/250ML 1/2NS 25,000 UNIT/250 ML IV.SOLN IVC SCH (00:39)
[2021-07-04] MEDS: Acetaminophen 325 MG TABLET PO SCH ×4 (03:23→19:39)
[2021-07-04] MEDS: Levalbuterol Neb 1.25 MG/3 ML IH SCH ×3 (03:23→16:47)
[2021-07-04] MEDS: Ipratropium Neb 0.5 MG NEBULIZER IH SCH ×3 (03:23→16:47)
[2021-07-04 05:16] LABS: Basophils # 0.1 K/mcL (0.0-0.2); Basophils % 1.4 %; Eosinophils # 0.2 K/mcL (0.0-0.6); Eosinophils % 4.5 %; Hematocrit 27.8 % (35.3-44.9); Hemoglobin 8.7 g/dL (11.5-15.4); Immature Granulocytes % 0.8 % (0-4); Lymphocytes # 1.1 K/mcL (0.6-4.6); Lymphocytes % 20.6 %; Mean Corpuscular HGB Conc 31.3 g/dL (31.6-35.5); Mean Corpuscular Hemoglobin 31.9 pg (28.0-33.3); Mean Corpuscular Volume 101.8 fL (83.0-100.0); Mean Platelet Volume 9.1 fL (9.4-12.4); Monocytes # 0.3 K/mcL (0.0-1.3); Monocytes % 6.6 %; Neutrophils # 3.4 K/mcL (1.6-8.9); Platelet Count 381 K/mcL (140-400); Red Blood Count 2.73 M/mcL (3.82-4.97); Red Cell Distribution Width 16.4 % (11.5-14.5); Segmented Neutrophils % 66.1 %; White Blood Count 5.2 K/mcL (4.3-11.1)
[2021-07-04 05:30] LABS: INR 1.5; Prothrombin Time 16.9 Seconds (9.4-12.1)
[2021-07-04 05:35] LABS: Vancomycin,Trough 18 mcg/mL (5-10)
[2021-07-04] MEDS: Vancomycin 1,250 MG/262.5 ML IV.SOLN IVPB SCH (06:04)
[2021-07-04] MEDS: *HR* OxyCODONE/APAP 10/325 TABLET PO PRN ×2 (06:05→16:47)
[2021-07-04] MEDS ORDERED: *HR* HYDROmorphone (PF) 1 MG/ML SYRINGE IVP PRN (08:09)
[2021-07-04 08:17] LABS: BUN/Creatinine Ratio 10 (6-26); Blood Urea Nitrogen 7 mg/dL (6-20); Calcium 8.7 mg/dL (8.6-10.3); Carbon Dioxide 22 mEq/L (23-29); Chloride 106 mEq/L (98-107); Glucose 98 mg/dL (70-105); Osmolality,Calculated 282 (280-300); Potassium 3.8 mEq/L (3.5-5.1); Sodium 137 mEq/L (136-145); eGFR For African Americans > 60 (> 60); eGFR For Non-African Americans > 60 (> 60)
[2021-07-04] MEDS: Metoprolol XL (24 HR) Succ 25 MG TAB.ER.24H PO SCH (10:09)
[2021-07-04] MEDS: Cyanocobalamin (B-12) 1,000 MCG TABLET PO SCH (10:09)
[2021-07-04] MEDS: Loratadine 10 MG TABLET PO SCH (10:09)
[2021-07-04] MEDS: Gabapentin 400 MG CAPSULE PO SCH ×2 (10:10→14:52)
[2021-07-04] MEDS: Thiamine (B-1) 100 MG TABLET PO SCH (10:10)
[2021-07-04] MEDS: Multivit/Ca/Min/Fe/FA 1 TAB TABLET PO SCH (10:10)
[2021-07-04] MEDS: FLUoxetine 20 MG CAPSULE PO SCH (10:10)
[2021-07-04] MEDS: Ascorbic Acid 500 MG TABLET PO SCH ×2 (10:11→16:47)
[2021-07-04] MEDS: Folic Acid 1 MG TABLET PO SCH (10:11)
[2021-07-04] MEDS: tiZANidine 4 MG TABLET PO SCH ×2 (10:11→14:52)
[2021-07-04] MEDS: Aspirin Enteric Coated 81 MG Tablet PO SCH (10:11)
[2021-07-04] MEDS: Lactulose Oral Soln 20 GM/30 ML UDC PO SCH (10:12)
[2021-07-04] MEDS: Nicotine 14 MG PATCH.TD24 TD SCH (10:12)
[2021-07-04] MEDS: ALPRAZolam 0.25 MG TABLET PO PRN ×2 (10:19→19:39)
[2021-07-04] MEDS ORDERED: *HR* OxyCODONE/APAP 7.5/325 TABLET PO ONE (12:50)
[2021-07-04] MEDS: Fluticasone Propionate Nasal 50 MCG/SPRAY BOTTLE NS SCH (14:54)
[2021-07-04 15:05] VITALS: BP 128/82; PULSE 83; TEMP 98.3; O2SAT 100
[2021-07-04] MEDS ORDERED: *HR* Warfarin 7.5 MG TABLET PO ONE (18:00)
== END 2021-07-04 20:45 | DRG 323 ==
LOC: 4WAOSI → SUATTDRO 06-21 00:14 → 4WAOSI 06-22 12:51
PROVIDERS: ADMIT Internal Medicine; ATTEND Student in an Organized Health Care Education/Training Program